=== PATIENT | male | born 1945 | race Caucasian/White ===

== ENCOUNTER → 2021-08-29 13:54 | Outpatient (BNVA) | payer MEDICARE, MEDICAID, SELFPAY | PROVIDERS: Visit Provider Internal Medicine | DX: J44.9 Chronic obstructive pulmonary disease, unspecified (principal); Z87.891 Personal history of nicotine dependence | CPT/HCPCS: 99202 ==

== ENCOUNTER 2021-09-23 13:25 | Outpatient (REF) | payer MEDICARE, MEDICAID, SELFPAY ==
--- NOTE | ~2021-09-23 | CT_ITS ---
EXAMINATION: CT CHEST SCREENING CLINICAL INFORMATION: Personal history of nicotine dependence. COMPARISON: None. TECHNIQUE: Multidetector volumetric CT imaging of the chest is performed without contrast using low dose technique. Additional 2D coronal and sagittal reformatted images and axial 3D maximum intensity projection (MIP) images are generated on the CT workstation. This CT examination was performed using dose optimization techniques as appropriate, variously including the following: *Automated exposure control *Adjustment of mA and/or kV according to patient size (this includes techniques or standardized protocols for targeted exams where dose is matched to indication/reason for exam; i.e. extremities or head) *Use of iterative reconstruction technique DLP: 63 mGy-cm FINDINGS: LUNGS: There are diffuse emphysematous changes of both lungs with small micronodules measuring 1 mm in both upper lobes, best visualized in the right upper lobe, axial image 176/6. There are additional small nodules in the left upper lobe better seen on the 8 mm thick axial images. There is subpleural reticular stranding seen in both lower lobes posterior basal segment, lingula and right middle lobe. There are small pulmonary cysts in both lower lobes. MEDIASTINUM: The thyroid lobes are symmetrical and normal. The central trachea and the bronchi are widely patent. The heart size and the great vessels are normal caliber. There are small shotty lymph nodes in the pretracheal space. There are coronary artery calcifications present. There is no pericardial effusion. A small to moderate-sized hiatal hernia is present. PLEURA: There is no pleural effusion. No pleural mass or thickening. AXILLA: No lymphadenopathy. UPPER ABDOMEN: Visualized liver, spleen, pancreas and adrenal glands are unremarkable. OSSEOUS STRUCTURES: No lytic or sclerotic process seen. CT/CT lung screening IMPRESSION: Emphysema with small micronodules measuring 1 mm in the upper lobes. There is fine reticular interstitial thickening in the right middle lobe, lingula and subpleural base both lower lobes with small cysts. Findings are suggestive for chronic lung changes. Small to moderate-sized hiatal hernia. ASSESSMENT: Lung-RADS category 2 Benign. RECOMMENDATION: Low-dose annual CT chest.
== END 2021-09-23 13:26 | disposition home or self-care (01) ==
LOC: HO.CT 13:25
PROVIDERS: Visit Provider Physician Assistant Medical
DX: Z12.2 Encounter for screening for malignant neoplasm of respiratory organs (principal); Z87.891 Personal history of nicotine dependence
CPT/HCPCS: 71271; G0296

== ENCOUNTER 2021-09-26 08:55 | Outpatient (REF) | payer MEDICARE, MEDICAID, SELFPAY ==
--- NOTE | 2021-09-26 16:28 | PFT_ITS ---
FLOWS: FEV1 82% of predicted at 2.42 L. FVC 96% of predicted at 3.92 L. FEV1 to FVC ratio of 0.62. Positive bronchodilator response. LUNG VOLUMES: Total lung capacity 104% of predicted at 7.17 L. Residual volume 152% of predicted at 3.80 L. Slow vital capacity 77% predicted at 3.37 L. Expiratory reserve volume 49% of predicted at 0.58 L. Diffusion capacity is moderately decreased. IMPRESSION: Mild to moderate obstructive ventilatory defect with positive bronchodilator response. Increased residual volume suggests air trapping. Decreased expiratory reserve volume suggests extrathoracic restriction likely secondary to abdominal obesity. Decreased diffusion capacity suggests emphysema. Desmond Bunch MD AP/MODL / [id number]
== END 2021-09-26 08:56 | disposition home or self-care (01) ==
LOC: HO.RESP 08:55
PROVIDERS: Visit Provider Internal Medicine
DX: J44.9 Chronic obstructive pulmonary disease, unspecified (principal); J84.9 Interstitial pulmonary disease, unspecified; Z87.891 Personal history of nicotine dependence
CPT/HCPCS: 94060; 94727; 94729; 99212

== ENCOUNTER → 2021-11-29 09:16 | Outpatient (BNVA) | payer MEDICARE, MEDICAID, SELFPAY | PROVIDERS: PCP Pediatrics; Visit Provider Internal Medicine | DX: J44.9 Chronic obstructive pulmonary disease, unspecified (principal); J84.9 Interstitial pulmonary disease, unspecified; Z87.891 Personal history of nicotine dependence | CPT/HCPCS: 99212 ==

== ENCOUNTER → 2022-06-01 09:29 | Outpatient (BNVA) | payer MEDICARE, MEDICAID, SELFPAY | PROVIDERS: PCP Pediatrics; Visit Provider Internal Medicine | DX: J44.9 Chronic obstructive pulmonary disease, unspecified (principal); J84.9 Interstitial pulmonary disease, unspecified; Z87.891 Personal history of nicotine dependence | CPT/HCPCS: 99212 ==

== ENCOUNTER 2022-09-15 08:35 | Outpatient (REF) | payer MEDICARE, MEDICAID, SELFPAY ==
[2022-09-15 10:37] LABS: MANUAL DIFF FLAG NO
[2022-09-15 10:40] LABS: Appearance Urine Clear; Color Urine Yellow; Glucose Urine UA Negative (Negative); Leukocyte Esterase Urine Negative (Negative); Nitrite Urine Negative (Negative); UMIC TRIGGER UA YES; Urine Blood Moderate (2+) (Negative); Urine Ketones Negative (Negative); Urine Protein Negative (Neg-Trace)
[2022-09-15 10:43] LABS: Basophils Absolute Auto 0.1 X10*3/uL (0.0-0.2); Basophils Percent Auto 0.7 % (0-2); Eosinophils Absolute Auto 0.2 X10*3/uL (0.0-0.4); Eosinophils Percent Auto 2.3 % (0-4); Hemoglobin 15.5 g/dl (14.0-18.0); Imm Gran Abs Auto 0.02 X10*3/uL (0.00-0.03); Imm Gran Pct Auto 0.3 % (0.0-0.4); Lymphocytes Absolute Auto 2.1 X10*3/uL (1.2-4.9); Lymphocytes Percent Auto 30.7 % (20-40); Mean Corpuscular Hemoglobin 31.4 pg (27.0-33.0); Mean Corpuscular Volume 95.1 fL (80.0-98.0); Mean Platelet Volume 10.3 fL (9.4-12.4); Monocytes Absolute Auto 0.5 X10*3/uL (0.1-1.2); Monocytes Percent Auto 6.9 % (2-11); Neutrophils Absolute Auto 4.1 x10*3/uL (2.0-8.3); Neutrophils Percent Auto 59.1 % (45-73); Platelet Count 283 X10*3/uL (160-400); Red Blood Count 4.94 X10*6/uL (4.60-5.80)
[2022-09-15 10:55] LABS: Alanine Aminotransferase 15 U/L (0-40); Alkaline Phosphatase 96 U/L (39-117); Anion Gap 18 (12-20); Aspartate Amino Transferase 18 U/L (5-37); Bilirubin Total 0.5 mg/dL (0.0-1.0); Blood Urea Nitrogen 22 mg/dL (9-16); Calcium 9.5 mg/dL (8.4-10.2); Carbon Dioxide 26 mmol/L (22-29); Chloride 102 mmol/L (96-108); Cholesterol 159 mg/dL; Estimated Glomerular Filt Rate 58; Glucose Fasting 142 mg/dL (60-99); HDL Cholesterol 44 mg/dL; LDL Cholesterol Calculated 93 mg/dl; Potassium 4.6 mmol/L (3.3-5.1); Sodium 141 mmol/L (135-145); Triglycerides 112 mg/dL
[2022-09-15 10:59] LABS: Bacteria Urine None Seen (None Seen); Hyaline Casts Urine 0-2 /LPF (0-2); Squamous Epithelial Cell Urine 0-2 /HPF (0-2); WBC Urine 0-5 /HPF (0-5)
[2022-09-15 11:17] LABS: Prostate Specific Antigen Scr 0.69 ng/mL (<0.05-4.0)
== END 2022-09-15 08:36 | disposition home or self-care (01) ==
LOC: HO.10HDL 08:35
PROVIDERS: Visit Provider Internal Medicine
DX: I25.10 Atherosclerotic heart disease of native coronary artery without angina pectoris (principal); E78.00 Pure hypercholesterolemia, unspecified; N40.0 Benign prostatic hyperplasia without lower urinary tract symptoms; Z12.5 Encounter for screening for malignant neoplasm of prostate
CPT/HCPCS: 36415; 80053; 80061; 81001; 84153; 85025

== ENCOUNTER → 2022-09-26 11:03 | Outpatient (BNVA) | payer MEDICARE, MEDICAID, SELFPAY | PROVIDERS: PCP Internal Medicine; Visit Provider Orthopaedic Surgery | DX: M72.0 Palmar fascial fibromatosis [Dupuytren] (principal) | CPT/HCPCS: 99202 ==

== ENCOUNTER 2022-11-27 09:27 | Outpatient (REF) | payer MEDICARE, MEDICAID, SELFPAY ==
[2022-11-27 10:49] LABS: Estimated Average Glucose 131 mg/dL; Hemoglobin A1c % 6.2 %
[2022-11-27 10:51] LABS: Anion Gap 14 (12-20); Blood Urea Nitrogen 22 mg/dL (9-16); Calcium 9.1 mg/dL (8.4-10.2); Carbon Dioxide 27 mmol/L (22-29); Chloride 103 mmol/L (96-108); Estimated Glomerular Filt Rate 59; Glucose Random 127 mg/dL (60-115); Potassium 4.7 mmol/L (3.3-5.1); Sodium 139 mmol/L (135-145)
== END 2022-11-27 09:28 | disposition home or self-care (01) ==
LOC: HO.10HDL 09:27
PROVIDERS: Visit Provider Internal Medicine
DX: R73.9 Hyperglycemia, unspecified (principal); N18.9 Chronic kidney disease, unspecified; J44.9 Chronic obstructive pulmonary disease, unspecified; J84.9 Interstitial pulmonary disease, unspecified; Z87.891 Personal history of nicotine dependence
CPT/HCPCS: 36415; 80048; 83036; 99212

== ENCOUNTER 2023-04-11 09:05 | Outpatient (REF) | payer MEDICARE, MEDICAID, SELFPAY ==
--- NOTE | ~2023-04-11 | XR_ITS ---
EXAMINATION: XR CERVICAL SPINE CLINICAL INFORMATION: Pain COMPARISON: None TECHNIQUE: 5 views of the cervical spine were obtained. FINDINGS: The cervical spine is visualized to the level of C7-T1 on the lateral view. 3 mm of anterolisthesis of C4 on C5. Vertebral body heights are maintained. Lateral masses of C1 are well aligned on C2. Visualized portion of the dens is intact. Moderate degenerative disc disease at C5-C6 and C6-C7, manifested by disc space height and multilevel facet arthropathy. Uncovertebral hypertrophy and facet arthropathy results in multilevel bilateral moderate to severe neural foraminal narrowing worst bilaterally at C3-C4 and C5-C6. No prevertebral soft tissue swelling. Calcifications in the soft tissues of the bilateral neck may reflect carotid calcifications. XR/XR cervical spine 4V IMPRESSION: 1. Moderate degenerative disc disease at C5-C6 and C6-C7, manifested by disc space height and multilevel facet arthropathy. 2. Uncovertebral hypertrophy and facet arthropathy results in multilevel moderate to severe neural foraminal narrowing worst bilaterally at C3-C4 and C5-C6. 3. 3 mm of anterolisthesis of C4 on C5. 4. Calcifications in the soft tissues of the bilateral neck may reflect carotid calcifications. This could be confirmed with a carotid ultrasound if warranted.
[2023-04-11 09:50] LABS: Estimated Average Glucose 123 mg/dL; Hemoglobin A1c % 5.9 %
[2023-04-11 10:28] LABS: Anion Gap 10 (12-20); Blood Urea Nitrogen 20 mg/dL (9-16); Calcium 9.1 mg/dL (8.4-10.2); Carbon Dioxide 26 mmol/L (22-29); Chloride 109 mmol/L (96-108); Estimated Glomerular Filt Rate > 60; Glucose Random 143 mg/dL (60-115); Potassium 4.9 mmol/L (3.3-5.1); Sodium 140 mmol/L (135-145)
== END 2023-04-11 09:06 | disposition home or self-care (01) ==
LOC: HO.XRAY 09:05
PROVIDERS: PCP Internal Medicine; Visit Provider Internal Medicine
DX: M54.2 Cervicalgia (principal); J44.9 Chronic obstructive pulmonary disease, unspecified; N18.9 Chronic kidney disease, unspecified; R73.03 Prediabetes
CPT/HCPCS: 36415; 72050; 80048; 83036

== ENCOUNTER 2023-06-04 10:05 | Outpatient (AMB) | payer MEDICARE, MEDICAID, SELFPAY ==
[2023-06-04 10:06] VITALS: BP 112/78; PULSE 67; O2SAT 93; BMI 26.6
--- NOTE | 2023-06-04 10:06 | A.OFFVIS_ITS ---
Intake Vital Signs 06/04/23 10:06 Height 5 ft 10 in Weight 185 lb 3.013 oz BMI 26.6 BP 112/78 Blood Pressure Location Lt brachial Position Sitting Pulse 67 Pulse Source Pulse Oximeter Pulse Oximetry (%) 93 Oxygen Delivery Method Room Air Intake Visit Reasons: COPD Intake Note: Pt presents today for a routine check up. He finds it harder to breathe when it is humid out and has a consistent cough with mucus. Allergies No Known Allergies Allergy (Verified 06/04/23 10:27) Medication List - Last Reconciled 06/04/23 by Leti Casas MD Advair Diskus 250-50 mcg/dose (fluticasone propion-salmeterol) 1 ea inhalation BID NS albuterol sulfate 90 mcg/actuation 0 mcg inhalation omega-3 fatty acids 0 mg PO BEDTIME Do you need a note to return to daycare/school/sports/work: No HPI COPD HPI Details THIS 77 YEARS OLD VERY [employer] GENTLEMAN IS HERE FOR HIS 6 MONTHS FOLLOW-UP. He has usual mild intermittent cough, and dyspnea on walking up stairs or climbing hills. Continues to use Advair 250-50 1 inhalation b.i.d., and uses ProAir once or twice a day especially in the evenings. Luckily he has had no respiratory infection or acute exacerbation in the last 6 months. Overall his respiratory status has remained very stable. HE QUIT SMOKING IN 2006. [facility] Medical History CAD (coronary artery disease) COPD (chronic obstructive pulmonary disease) History of retinal hemorrhage History of smoking at least 1 pack per day for at least 30 years Hyperlipidemia Hypertension, essential Interstitial lung disease Mild aortic stenosis Personal history of nicotine dependence Prediabetes Surgical History History of heart artery stent (~2010) Social History Alcohol intake: current Alcohol intake frequency: does not drink Patient Tobacco Use Status: Former Tobacco user Quit Date: 2006 Tobacco use type: Cigarette Years Smoked: 45 (onset 17, 1.5ppd x 44yrs, 65pyh - quit 2006) 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 Review of Systems Const All systems reviewed & are unremarkable except as noted in HPI and below Eyes Reports no additional complaints ENT Reports no additional complaints Card Denies chest pain, Denies irregular heart rhythm and Denies leg edema Resp Reports as per HPI GI Reports no additional complaints Reports no additional complaints Musc Reports no additional complaints Skin/Breast Reports system reviewed and no additional complaints, except as documented Neuro Reports no additional complaints Psych Reports no additional complaints Physical Exam Vital Signs: Last Vital Signs Pulse 67 06/04/23 10:06 BP 112/78 06/04/23 10:06 Pulse Ox 93 06/04/23 10:06 Oxygen Delivery Method Room Air 06/04/23 10:06 BMI result Body Mass Index 26.6 Const General: healthy appearing, comfortable, no acute distress, alert and awake Orientation/consciousness: patient oriented x3 HEENT Head: Yes normal to inspection General nose exam: No nasal polyps present and No nasal discharge present Face and sinus: Yes sinuses nontender Mouth: oropharynx normal Throat: Yes posterior oropharynx normal Eyes General: appearance normal, both eyes and all related structures Neck Neck: Yes normal visual inspection, Yes no lymphadenopathy, Yes trachea midline and Yes no JVD Thyroid: Thyroid normal Chest Chest palpation & inspection: normal inspection of the chest, normal palpation of entire chest wall and no tenderness Resp Other: Percussion note is resonant on both sides. Breath sounds are distant, equal with prolonged expiratory phase. No wheezes rhonchi or crepitations are heard. Cardio Palpation: normal PMI Rate: regular rate Rhythm: regular rhythm Heart sounds: no gallops and no murmurs Peripheral pulses: Peripheral pulses 2+ throughout GI Palpation (GI): Soft to palpation, nontender, No hepatosplenomegaly present and no masses Auscultation: normal bowel sounds Back/Spine/Pelvis Thoracic/Lumbar Spine: thoracic and lumbar spine normal to inspection Skin General skin exam: no rashes or lesions noted Neuro General: patient oriented x3 and no focal motor deficits Cranial nerves: Yes CN's II-XII intact bilaterally Extrem General: Yes normal to inspection, Yes no clubbing, cyanosis or edema and Yes no calf tenderness Psych Appearance: grossly normal and well kempt Speech and movement: Normal speech and movement present Office Procedures Spirometry Testing Spirometry Comments: Spirometry completed in office. Results to Dr Casas. [id number]- Spirometry Results Reviewed Results Reviewed: SPIROMETRY FVC=65 % slightly decreased from before. His effort was not great. FEV1=74 % FEF 25-75 = 100 % ( OBSTRUCTIVE COMPONENT IS WELL TREATED ) Assessment & Plan Assessment & Plan (1) COPD (chronic obstructive pulmonary disease): Comment: (COPD in long-time smoker ) PULM . FUNCTION TEST IN 2020 C/W mild to moderate obstructive disorder , with good response to bronchodilator therapy. ( ACOS ) SPIROMETRY TODAY SHOWS THAT HE MAY HAVE MILD RESTRICTIVE DISORDER, BUT OBSTRUCTIVE DISORDER IS WELL TREATED. TX : Continue using Advair 250-50 one inh twice a day Also use albuterol HFA (proair ) 2 puffs Q 4-6 hours p.r.n. Code(s): J44.9 - Chronic obstructive pulmonary disease, unspecified (2) History of smoking at least 1 pack per day for at least 30 years: Comment: . HISTORY OF SMOKING IN THE PAST QUIT in 2006 . Code(s): Z87.891 - Personal history of nicotine dependence Orders: Orders AMB Spirometry Testing Today J44.9 - Chronic obstructive pulmonary disease, unspecified Coding Level of Care Code Est Pt Level 3 (17650) Diagnoses COPD (chronic obstructive pulmonary disease) J44.9 History of smoking at least 1 pack per day for at least 30 years Z87.891 CPT Codes Spirometry - CPT: 23465- Spirometry ([id number])
== END 2023-06-04 10:43 | disposition home or self-care (01) ==
PROVIDERS: PCP Internal Medicine; Visit Provider Internal Medicine
DX: J44.9 Chronic obstructive pulmonary disease, unspecified (principal); Z87.891 Personal history of nicotine dependence
CPT/HCPCS: 94010; 99213

== ENCOUNTER → 2023-06-04 10:05 | Outpatient (BNVA) | payer MEDICARE, MEDICAID, SELFPAY | PROVIDERS: PCP Internal Medicine; Visit Provider Internal Medicine | DX: J44.9 Chronic obstructive pulmonary disease, unspecified (principal); Z87.891 Personal history of nicotine dependence | CPT/HCPCS: 94010; 99212 ==

== ENCOUNTER 2023-06-15 09:12 | Outpatient (REF) | payer MEDICARE, MEDICAID, SELFPAY ==
--- NOTE | ~2023-06-15 | XR_ITS ---
EXAMINATION: Pre-MRI orbits. CLINICAL INDICATIONS: Rule out foreign body in orbits. COMPARISON: None. TECHNIQUE: 3 views. FINDINGS: There is no radiopaque foreign body seen in the orbits. Visualized bony orbits and the maxillofacial bones are normal. The paranasal sinuses are clear. XR/XR pre mri screening IMPRESSION: No radiopaque foreign body seen in the orbits.
--- NOTE | ~2023-06-15 | MR_ITS ---
EXAMINATION: MR CERVICAL SPINE WITHOUT CONTRAST CLINICAL INFORMATION: Foraminal stenosis with pain radiating into both shoulders. COMPARISON: Cervical spine radiographs 04/11/2023. TECHNIQUE: MRI of the cervical spine was obtained using routine sequences without contrast. FINDINGS: There is a slight anterolisthesis of C4 on C5 related to advanced facet degenerative changes at this level. Alignment is otherwise normal. Vertebral body heights are preserved. There is loss of intervertebral disc height and T2 signal intensity at C5-C6 and C6-C7 related to disc degeneration. Disc desiccation visualized at multiple additional levels. The cervicomedullary junction is normal. Limited visualization of the posterior fossa reveals no abnormal finding. Occipital condyles and lateral C1 masses are intact. The atlantodental joint is normal. C1-C2 articular facets are unremarkable. At C2-C3 there is a bulging disc and buckling of the ligamenta flava. Mild canal stenosis. Uncovertebral joint spurring in conjunction with facet degenerative change causes mild bilateral neuroforaminal encroachment. At C3-C4 there is a diffusely bulging disc and buckling of the ligamenta flava causing moderate to severe canal stenosis with AP flattening of the cord contour. Questionable intramedullary signal changes at this level. Uncovertebral joint spurring and facet degenerative change causes moderate bilateral neuroforaminal catheter. At C4-C5 there is a slightly bulging disc. Bilateral facet degenerative change. No canal stenosis. Mild right neuroforaminal encroachment. At C5-C6 there is a bulging disc and buckling of the ligamenta flava. Moderate to severe canal stenosis with subtle flattening of the ventral cord contour. Questionable intramedullary signal changes. Uncovertebral joint spurring and conjunction with facet degenerative change causes moderate bilateral neuroforaminal encroachment. At C6-C7 there is a bulging disc and buckling of the ligamenta flava. Moderate canal stenosis. Uncovertebral joint spurring and facet degenerative change causes moderate bilateral neuroforaminal encroachment. At C7-T1 the annular contour is normal. Bilateral facet degenerative change. No canal stenosis. No neuroforaminal encroachment. Visualized soft tissues of the neck are normal. Vascular flow voids are maintained. MR/MR cervical spine wo con IMPRESSION: There is multilevel degenerative spondylosis of the cervical spine with slight anterolisthesis of C4 on C5 related to advanced facet degenerative changes at this level. There is moderate to severe canal stenosis at C3-C4 and C5-C6. Moderate canal stenosis at C6-C7. There are questionable intramedullary signal changes at the level of C3-C4 and C5-C6 that may represent a manifestation of edema or myelomalacia. There are varying degrees of neuroforaminal encroachment related to uncovertebral joint spurring and facet degenerative change as described above.
== END 2023-06-15 09:13 | disposition home or self-care (01) ==
LOC: HO.MRI 09:12
PROVIDERS: PCP Internal Medicine; Visit Provider Internal Medicine
DX: M99.71 Connective tissue and disc stenosis of intervertebral foramina of cervical region (principal)
CPT/HCPCS: 72141

== ENCOUNTER 2023-08-24 08:46 | Emergency (ER) | payer MEDICARE, MEDICAID, SELFPAY ==
[2023-08-24 09:20] VITALS: BP 152/46; PULSE 65; RESP 16; TEMP 35.8; O2SAT 97; BMI 26.3
--- NOTE | 2023-08-24 09:22 | ED_ITS ---
HPI - General Adult General Chief complaint: Back Pain/Injury Stated complaint: herniated disc? Time Seen by Provider: 08/24/23 09:22 Source: patient Mode of arrival: ambulatory Limitations: no limitations History of Present Illness HPI narrative: Patient is a 77 year old assigned male at with a history of CAD, herniated discs, and HTN presenting to the emergency department today with right sided low back pain that radiates down his right leg. Patient states that many years ago he was diagnosed with multiple herniated discs, got a steroid shot in his back, and the pain went away. Patient states that over the last few days the pain has returned and began to worsen. Patient states that the pain is in his right low back and radiates down his right leg. Patient states that he has an appointment with a regional telecommunications specialist a month and a half away. Patient denies any dizziness, lightheadedness, abdominal pain, nausea, vomiting, fever, chills, blurry vision, double vision, loss of vision, chest pain, difficulty breathing, shortness of breath, night sweats, pain with urination, increased urinary frequency, increased urinary urgency, blood in his urine or stool, syncope or a near syncopal episode, recent trauma or falls, bowel incontinence, bladder incontinence, bowel retention, bladder retention, or any other complaints at this time. Onset (ago): day(s) Location: back Radiation: extremity Severity: mild Severity scale (1-10): 4 Quality: stabbing Pain Consistency: constant Relieving factors: immobilization Exacerbating factors: movement Associated symptoms: denies other symptoms Treatments prior to arrival: NSAID Related Data Home Medications Medication Instructions Recorded Confirmed albuterol sulfate 90 mcg/actuation 0 mcg inhalation 08/29/21 06/01/22 aerosol inhaler omega-3 fatty acids 1,000 mg 0 mg PO BEDTIME 08/29/21 06/01/22 capsule Previous Rx's Medication Instructions Recorded Advair Diskus 250 mcg-50 mcg/dose 1 ea inhalation BID #60 ea 04/10/23 powder for inhalation (fluticasone propion-salmeterol) cyclobenzaprine 5 mg tablet 5 mg PO TID PRN muscle spasm 7 08/24/23 days #21 tabs naproxen 500 mg tablet 500 mg PO BID 7 days #14 tabs 08/24/23 prednisone 20 mg tablet 20 mg PO DAILY 7 days #7 tabs 08/24/23 Allergies Allergy/AdvReac Type Severity Reaction Status Date / Time No Known Allergies Allergy Verified 06/04/23 10:27 Review of Systems Constitutional: Constitutional: Reports no additional constitutional complaints, Denies chills, Denies fever(s) and Denies night sweats Eyes: Eyes: Reports no additional eye complaints, Denies blurry vision, Denies change in vision, Denies diplopia, Denies eye discharge, Denies loss of vision and Denies eye pain ENT: Denies dizziness Cardiovascular: Cardiovascular: Reports no additional cardiovascular complaints, Denies chest pain, Denies lightheadedness, Denies Loss of Consciousness and Denies dyspnea Respiratory: Respiratory: Reports no additional respiratory complaints and Denies dyspnea Gastrointestinal: Gastrointestinal: Reports no additional gastrointestinal complaints, Denies abdominal pain, Denies melena, Denies hematochezia, Denies change in bowel habits and Denies change in stool character Genitourinary: Genitourinary: Reports no additional male genitourinary complaints, Denies hematuria, Denies oliguria, Denies difficulty urinating, Denies dysuria, Denies urinary frequency, Denies urinary hesitancy, Denies urinary incontinence and Denies urinary urgency Musculoskeletal: Musculoskeletal: Reports no additional musculoskeletal com plaints, Reports back pain, Denies numbness and Denies tingling Neurologic: Denies dizziness, Denies loss of vision, Denies numbness and Denies tingling Psychiatric: Psychiatric: Reports no additional psychiatric complaints Endocrine: Endocrine: Reports no additional endocrine complaints Hematologic/Lymphatic: Hematologic/Lymphatic: Reports no additional hematologic/lymphatic complaints Allergic/Immunologic: Allergic/Immunologic: Reports no additional allergic/immunologic complaints [facility] Past Medical History Attestation statement: The following information was validated with the patient. Source: old records reviewed and nursing notes reviewed Medical History Interstitial lung disease History of smoking at least 1 pack per day for at least 30 years Mild aortic stenosis History of retinal hemorrhage Personal history of nicotine dependence Prediabetes Hyperlipidemia Hypertension, essential CAD (coronary artery disease) COPD (chronic obstructive pulmonary disease) Surgical History History of heart artery stent (~2010) Social History Social History Alcohol intake: current Alcohol intake frequency: does not drink Patient Tobacco Use Status: Former Tobacco user Quit Date: 2006 Tobacco use type: Cigarette Years Smoked: 45 (onset 17, 1.5ppd x 44yrs, 65pyh - quit 2006) 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 Physical Exam ED Vital Signs: Vital Signs - 24 hr 08/24/23 09:20 Temperature 96.5 F L Pulse Rate 65 Respiratory Rate 16 Blood Pressure 152/46 H Pulse Oximetry 97 Oxygen Delivery Method Room Air BMI result Body Mass Index 26.3 Const General: cooperative, no acute distress, alert and awake Nutritional Appearance: well nourished Orientation/consciousness: patient oriented x3 Limitations: no limitations HENMT Head: Yes normal to inspection and Yes atraumatic Ears: hearing grossly normal bilaterally and external ears normal General nose exam: Normal external nose present, no nasal discharge noted and no epistaxis Face and sinus: Yes normal facial exam, No abrasion and No laceration Mouth: Normal oral and palatal mucosa present, no drooling and no muffled voice Eyes General: appearance normal, both eyes and all related structures Periorbital: periorbital findings normal Eyelids: Yes eyelids normal Conjunctivae: conjunctivae normal Pupils: Equal, round and reactive pupils present EOM: EOMs intact bilaterally Neck Neck: Yes normal visual inspection, Yes full ROM and Yes no lymphadenopathy Chest Chest palpation & inspection: normal inspection of the chest Resp Effort & Inspection: normal respiratory effort and able to speak in complete sentences GI Inspection: Yes normal to inspection General: Yes no CVA tenderness Back/Spine/Pelvis Back: no CVA tenderness Cervical Spine: normal cervical lordosis and cervical ROM normal Thoracic/Lumbar Spine: thoracic and lumbar spine normal to inspection and thoraco-lumbar ROM normal Neuro General: patient oriented x3 and moves all extremities Cranial nerves: Yes Equal, round and reactive pupils present Cognition (Neuro): normal cognition Motor exam (neuro): 5/5 motor strength present throughout Sensory Exam: Normal double simultaneous stimulation for sensation Coordination: [id number] test normal Extrem General: Yes normal to inspection, Yes full ROM and Yes capillary refill normal Psych Appearance: grossly normal Mental Status: mental status grossly normal Affect: normal affect Attitude: cooperative Thought process: Normal thought process present Thought content: Normal thought content present Insight: Good insight present (Psych) Medications Administered Discontinued Medications Generic Name Dose Route Start Last Admin Trade Name Kermit PRN Reason Stop Dose Admin Cyclobenzaprine HCl 5 mg 08/24/23 09:58 08/24/23 10:10 Cyclobenzaprine Hcl 5 Mg Tablet PO 08/24/23 09:59 5 mg ONCE ONE Administration Ketorolac Tromethamine 15 mg 08/24/23 09:58 08/24/23 10:10 Ketorolac Tromethamine 15 Mg/Ml Vial IM 08/24/23 09:59 15 mg ONCE ONE Administration Prednisone 20 mg 08/24/23 09:58 08/24/23 10:10 Prednisone 20 Mg Tablet PO 08/24/23 09:59 20 mg ONCE ONE Administration Medical Decision Making Medical Decision Making MDM Narrative: Patient is a 77 year old assigned male at with a history of CAD, HTN, and multiple herniated discs presenting to the emergency department today with right sided low back pain. Patient's physical exam was unremarkable. I explained my physical exam findings to the patient. I answered all questions asked by the patient. The patient and I discussed need or lack there of for imaging. At this time, the patient declined any imaging. Patient received PO Flexeril, PO Prednisone, and IM Toradol which he stated helped his pain significantly. I stressed the importance of the patient taking his medication as prescribed. I stressed the importance of the patient following up with his primary care provider and a regional telecommunications specialist. I stressed the importance of the patient returning to the emergency department immediately if his symptoms were to worsen or if he were to develop any dizziness, shortness of breath, difficulty juan thing, chest pain, blurry vision, loss of vision, nausea, vomiting, abdominal pain, fever, chills, back pain, or any other complaints. Patient verbalized agreement and understanding with this treatment plan and discharge. Differential Diagnosis Differential Diagnoses: The differential diagnosis associated with the presentation includes Herniated discs Low back pain Chronic low back pain Sciatic pain Tests considered The following testing was considered but not selected: Imaging was considered but patient declined as noted in the MDM rationale portion of this note. Prescription Management I considered prescription management with: Pain Medication (patient prescribed pain medication.) Chronic Conditions Patient?s care impacted by: Hypertension Discharge Plan Discharge Clinical Impression: Back pain Patient Disposition: Home, Self-Care Instructions: Back Pain (ED) Additional Instructions: Follow up with your primary care provider and a regional telecommunications specialist. Return to the emergency department immediately if your symptoms worsen or if you develop any dizziness, shortness of breath, difficulty breathing, chest pain, blurry vision, loss of vision, nausea, vomiting, abdominal pain, fever, chills, back pain, or any other complaints. Prescriptions: New cyclobenzaprine 5 mg tablet 5 mg PO TID PRN (Reason: muscle spasm) 7 Days Qty: 21 0RF prednisone 20 mg tablet 20 mg PO DAILY 7 Days Qty: 7 0RF naproxen 500 mg tablet 500 mg PO BID 7 Days Qty: 14 0RF No Action fluticasone propion-salmeterol [Advair Diskus] 250-50 mcg/dose blister with device 1 ea inhalation BID Qty: 60 4RF omega-3 fatty acids 1,000 mg capsule 0 mg PO BEDTIME albuterol sulfate 90 mcg/actuation HFA aerosol inhaler 0 mcg inhalation Referrals: [facility] [Provider Group] (Call to establish and follow up with a regional telecommunications specialist.) Benny Michelle MD [Primary Care Provider] - Interventions: ED Discharge Assessment Last Done: 08/24/23 10:20 Discharge Date/Time: 08/24/23 10:21 Print Language: [place]
[2023-08-24] MEDS: Cyclobenzaprine HCl 5 MG TABLET PO (10:10)
[2023-08-24] MEDS: Ketorolac Tromethamine 15 MG/ML VIAL IM (10:10)
[2023-08-24] MEDS: predniSONE 20 MG TABLET PO (10:10)
== END 2023-08-24 10:21 | disposition home or self-care (01) ==
PROVIDERS: Emergency Provider Student in an Organized Health Care Education/Training Program; PCP Internal Medicine
DX: M54.50 Low back pain, unspecified (principal); E11.9 Type 2 diabetes mellitus without complications; I10 Essential (primary) hypertension; E78.5 Hyperlipidemia, unspecified; Z87.891 Personal history of nicotine dependence; Z79.899 Other long term (current) drug therapy
CPT/HCPCS: 96372; 99283; 99284; J1885

== ENCOUNTER 2023-09-13 10:30 | Outpatient (REF) | payer MEDICARE, MEDICAID, SELFPAY ==
[2023-09-13 13:43] LABS: Anion Gap 10 (12-20); Blood Urea Nitrogen 19 mg/dL (9-16); Calcium 8.9 mg/dL (8.4-10.2); Carbon Dioxide 28 mmol/L (22-29); Chloride 106 mmol/L (96-108); Estimated Glomerular Filt Rate > 60; Glucose Random 142 mg/dL (60-115); Potassium 4.6 mmol/L (3.3-5.1); Sodium 139 mmol/L (135-145)
== END 2023-09-13 10:31 | disposition home or self-care (01) ==
LOC: HO.10HDL 10:30
PROVIDERS: Visit Provider Internal Medicine
DX: N17.9 Acute kidney failure, unspecified (principal)
CPT/HCPCS: 36415; 80048

== ENCOUNTER 2023-12-03 09:29 | Outpatient (AMB) | payer MEDICARE, MEDICAID, SELFPAY ==
--- NOTE | 2023-12-03 09:33 | A.OFFVIS_ITS ---
Intake Vital Signs 12/03/23 09:34 Height 5 ft 10 in Weight 187 lb BMI 26.8 BP 130/70 Blood Pressure Location Lt brachial Position Sitting Pulse 60 Pulse Source Pulse Oximeter Pulse Oximetry (%) 96 Oxygen Delivery Method Room Air Intake Visit Reasons: copd Intake Note: pt is here for follow up and states he is feeling, had hospital stay about month ago in [facility] for back surgery. 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 HIS THE PULMONARY DISEASE IS MAINLY, RESTRICTIVE PULMONARY DISORDER WITH, MILD TO MODERATE OBSTRUCTIVE DISORDER. HE HAS PAST HISTORY OF SMOKING FOR AT LEAST 30 YEARS, HE HAS BEEN IN ANNUAL LUNG SCREENING PROGRAM, AND HIS CT SCAN HAS BEEN BENIGN CATEGORY 2. DURING THE PAST FEW MONTHS HE HAS BEEN HOSPITALIZED AT [facility] FOR ACUTE LUMBAR RADICULOPATHY, HE HAD MICRODISKECTOMY, WITH RELIEF OF ACUTE BACK PAIN BUT CONTINUES TO HAVE MIL D RADICULAR SYMPTOMS IN THE RIGHT LOWER EXTREMITY. HE ALSO HAS ASSOCIATED CONGESTIVE HEART FAILURE WHICH IS UNDER CONTROL. HE WALKS SLOWLY, USES A CANE, DENIES ANY SIGNIFICANT SHORTNESS OF BREATH, HE DOES HAVE MILD INTERMITTENT COUGH, NO WHEEZING. [facility] Medical History Interstitial lung disease History of smoking at least 1 pack per day for at least 30 years Mild aortic stenosis History of retinal hemorrhage Personal history of nicotine dependence Prediabetes Hyperlipidemia Hypertension, essential CAD (coronary artery disease) COPD (chronic obstructive pulmonary disease) Surgical History History of heart artery stent (~2010) Social History Alcohol intake: current Alcohol intake frequency: does not drink Patient Tobacco Use Status: Former Tobacco user Quit Date: 2006 Tobacco use type: Cigarette Years Smoked: 45 (onset 17, 1.5ppd x 44yrs, 65pyh - quit 2006) 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 Review of Systems Const All systems reviewed & are unremarkable except as noted in HPI and below Eyes Reports no additional complaints ENT Reports no additional complaints Card Denies chest pain, Denies irregular heart rhythm and Denies leg edema Resp Reports as per HPI GI Reports no additional complaints Reports no additional complaints Musc Reports no additional complaints Skin/Breast Reports system reviewed and no additional complaints, except as documented Neuro Reports no additional complaints Psych Reports no additional complaints Physical Exam Vital Signs: Last Vital Signs Pulse 60 12/03/23 09:34 BP 130/70 12/03/23 09:34 Pulse Ox 96 12/03/23 09:34 Oxygen Delivery Method Room Air 12/03/23 09:34 BMI result Body Mass Index 26.8 Const General: healthy appearing, comfortable, no acute distress, alert and awake Orientation/consciousness: patient oriented x3 HEENT Head: Yes normal to inspection General nose exam: No nasal polyps present and No nasal discharge present Face and sinus: Yes sinuses nontender Mouth: oropharynx normal Throat: Yes posterior oropharynx normal Eyes General: appearance normal, both eyes and all related structures Neck Neck: Yes normal visual inspection, Yes no lymphadenopathy, Yes trachea midline and Yes no JVD Thyroid: Thyroid normal Chest Chest palpation & inspection: normal inspection of the chest, normal palpation of entire chest wall and no tenderness Resp Other: Percussion note is resonant on both sides. Breath sounds are distant, equal with prolonged expiratory phase. No wheezes rhonchi or crepitations are heard. Cardio Palpation: normal PMI Rate: regular rate Rhythm: regular rhythm Heart sounds: no gallops and no murmurs Peripheral pulses: Peripheral pulses 2+ throughout GI Palpation (GI): Soft to palpation, nontender, No hepatosplenomegaly present and no masses Auscultation: normal bowel sounds Back/Spine/Pelvis Thoracic/Lumbar Spine: thoracic and lumbar spine normal to inspection Skin General skin exam: no rashes or lesions noted Neuro General: patient oriented x3 and no focal motor deficits Cranial nerves: Yes CN's II-XII intact bilaterally Extrem General: Yes normal to inspection, Yes no clubbing, cyanosis or edema and Yes no calf tenderness Psych Appearance: grossly normal and well kempt Speech and movement: Normal speech and movement present Assessment & Plan Assessment & Plan (1) History of smoking at least 1 pack per day for at least 30 years: Comment: . HISTORY OF SMOKING IN THE PAST QUIT in 2006 . Code(s): Z87.891 - Personal history of nicotine dependence Plan: HAS BEEN PARTICIPATING IN ANNUAL LUNG SCREENING PROGRAM. FINDINGS HAVE BEEN BENIGN . (2) COPD (chronic obstructive pulmonary disease): Comment: (COPD in long-time smoker ) PULM . FUNCTION TEST IN 2020 C/W mild to moderate obstructive disorder , with good response to bronchodilator therapy. ( ACOS ) HE IS DOING VERY WELL WITH THE CURRENT MEDICAL REGIMEN, ADVAIR WAS CHANGED TO SYMBICORT. Code(s): J44.9 - Chronic obstructive pulmonary disease, unspecified Plan: [place] : CONTINUE SYMBICORT 160-4.52 PUFFS B.I.D.. AND PROAIR 2 PUFFS Q 4-6 HOURS ONLY P.R.N.. (3) Interstitial lung disease: Comment: As per CT scan he does have evidence of fibrotic changes with peripheral reticulation in the lower lobes, c/w pulmonary fibrosis, mild . This is secondary to previous smoking and exposure to paint and sprays etc also. This is the cause of decreased DLCO. Will continue to watch for any progression. Code(s): J84.9 - Interstitial pulmonary disease, unspecified Plan: No specific treatment needed at this time Medications: Refilled budesonide-formoterol 160-4.5 mcg/actuation (Symbicort) 2 puffs inhalation BID 10.2 grams 5RF ASTHMA/COPD 30 days Coding Level of Care Code Est Pt Level 3 (54307) Diagnoses History of smoking at least 1 pack per day for at least 30 years Z87.891 COPD (chronic obstructive pulmonary disease) J44.9 Interstitial lung disease J84.9
[2023-12-03 09:34] VITALS: BP 130/70; PULSE 60; O2SAT 96; BMI 26.8
== END 2023-12-03 09:56 | disposition home or self-care (01) ==
PROVIDERS: PCP Internal Medicine; Visit Provider Internal Medicine
DX: Z87.891 Personal history of nicotine dependence (principal); J44.9 Chronic obstructive pulmonary disease, unspecified; J84.9 Interstitial pulmonary disease, unspecified
CPT/HCPCS: 99213

== ENCOUNTER → 2023-12-03 09:29 | Outpatient (BNVA) | payer MEDICARE, MEDICAID, SELFPAY | PROVIDERS: PCP Internal Medicine; Visit Provider Internal Medicine | DX: J44.9 Chronic obstructive pulmonary disease, unspecified (principal); J84.9 Interstitial pulmonary disease, unspecified; Z87.891 Personal history of nicotine dependence | CPT/HCPCS: 99212 ==

== ENCOUNTER → 2023-12-06 09:45 | Outpatient (REF) | payer MEDICARE, MEDICAID, SELFPAY ==
--- NOTE | ~2023-12-06 | US_ITS ---
EXAMINATION: US EXTRACRANIAL CAROTID DUPLEX, BILATERAL CLINICAL INFORMATION: Carotid bruit. Former smoker. COMPARISON: None available. TECHNIQUE: Real-time ultrasound and Doppler techniques (integrating B-mode 2-D vascular images, Doppler spectral analysis and color-flow Doppler imaging) were utilized to interrogate the extracranial carotid arteries, the vertebral arteries and proximal subclavian arteries bilaterally. The degree of stenosis is determined by criteria similar to NASCET. FINDINGS: Right Side: 1. There is moderate atherosclerotic plaque seen in the bifurcation/proximal ICA region. 2. The common carotid artery PSV proximally is 141 cm/s and distally 94 cm/s. 3. The proximal internal carotid artery velocities are 68 cm/s systolic and 25 cm/s diastolic. 4. The proximal external carotid artery PSV is 171 cm/s. 5. The vertebral artery shows antegrade flow. 6. The subclavian artery waveforms are biphasic. Left Side: 1. There is mild atherosclerotic plaque seen in the bifurcation/proximal ICA region. 2. The common carotid artery PSV proximally is 100 cm/s and distally 84 cm/s. 3. The proximal internal carotid artery velocities are 79 cm/s systolic and 30 cm/s diastolic. 4. The proximal external carotid artery PSV is 99 cm/s. 5. The vertebral artery shows antegrade flow. 6. The subclavian artery waveforms are biphasic. US/US carotid duplex BI IMPRESSION: 1. RIGHT: Minimal, non-hemodynamically significant stenosis of the proximal right internal carotid artery corresponding to a 0-49% stenosis by velocity criteria. 2. LEFT: Minimal, non-hemodynamically significant stenosis of the proximal left internal carotid artery corresponding to a 0-49% stenosis by velocity criteria.
--- NOTE | 2023-12-06 09:51 | CA_ITS ---
Transthoracic Echocardiogram Patient (Last, First, Middle): August Rivera H Gender: Male Date of : 1945 Age: 77 Procedure Date: 12/06/2023 Procedure Type: Transthoracic Echocardiogram Location: OP Height: 175.26 cm Weight: 81.65 kg BSA: 1.98 m2 Heart Rate: 64 bpm BP: 165 / 80 mmHg In Store Representative: MICHAEL Referring MD: Benny Michelle MD Spring Assembler: Patrick Null MD Symptoms: R01.1 CARDIAC MURMUR Study Quality: Adequate ECG Rhythm: Sinus Conclusions: - 1. Normal LV ejection fraction of 55-60% with mild LVH with impaired relaxation filling pattern 2. Mildly dilated left atrium 3. Severe aortic stenosis despite mean gradient of 36 mmHg 4. Normal RV systolic pressure 5. No gross pericardial effusion Findings Left Ventricle Normal left ventricular size and systolic function. There is mildly increased left ventricular wall thickness. The visually estimated ejection fraction is between 55-60%. Spectral Doppler is indicative of an impaired relaxation filling pattern. E/E prime ratio is between 8 and 15 consistent with indeterminate filling pressures. Peak GLS is -13.9%, which is moderately reduced. Right Ventricle Normal right ventricular cavity size and systolic function. Atria The left atrium is mildly dilated. There is lipomatous hypertrophy of the interatrial septum. There is no evidence of interatrial shunt. The right atrium is normal in size. Aortic Valve There is moderate calcification of the aortic valve. There is moderate thickening of the aortic valve. There is severe aortic valve stenosis. There is mild aortic valve regurgitation. Dimensionless index is 0.21 consistent with severe aortic stenosis despite mean gradient of 36 mmHg. Mitral Valve There is mild anterior and moderate posterior mitral leaflet thickening. There is moderate mitral annular calcification. There is trace mitral valve regurgitation. There is no mitral valve stenosis. Pulmonic Valve The pulmonic valve is likely normal. There is trace pulmonic valve regurgitation. Tricuspid Valve Normal tricuspid valve structure. There is mild tricuspid valve regurgitation. The right ventricular systolic pressure is normal. The right ventricular systolic pressure is 28 mmHg. Normal right atrial pressure. There is no evidence of pulmonary hypertension. Great Vessels The pulmonary artery was not well visualized. There is no dilatation of the ascending aorta measuring 3.20 cm. There is no evidence of plaque in the aorta. Venous The inferior vena cava is normal in size and collapses greater than 50% with inspiration. Pericardium/Pleural There is no evidence of pericardial effusion. Prior Study Comparison No prior study available for comparison. Measurements 2D Linear Measurements IVSd: 1.25 0.6-0.9/0.6-1.0 cm LVIDd: 4.37 3.9-5.3/4.2-5.9 cm LVIDd Index: 2.21 2.4-3.2/2.2-3.1 cm/m2 LVIDs: 3.05 2.0-3.6 cm LVPWd: 1.03 0.7-1.1 cm LA Diam: 4.00 2.7-3.8/3.0-4.0 cm LAIDs Index: 2.02 1.5-2.3 cm/m2 LV Mass: 219.05 67-162/88-224 g LV Mass Index: 110.63 43-95/49-115 g/m2 LVOT Diam: 2.00 3.0+(-)1.3 cm 2D Systolic Function EF 4C: 61.90 >55% EF 2C: 50.90 >55% EF BiP: 55.60 >55% Mitral Valve MV Pk E: 0.89 MV PK A: 1.28 MV Decel Time: 203.00 E/A: 0.70 E'Lateral: 6.74 E'Medial: 5.77 E/E' Med: 15.40 E/E' Lat: 13.20 PHT: 60.00 MVA PHT: 3.67 Decel Antelope: 4.36 Aortic Valve AoV Pk Artemio: 3.73 AoV Mn Artemio: 2.79 AoV VTI: 0.89 AoV Pk Grad: 56.00 Aov Mn Grad: 36.00 PIPER Cont.VTI: 0.68 AI Pk Artemio: 3.97 AI Antelope: 2.16 LVOT LVOT Pk Artemio: 0.77 LVOT Mn Artemio: 0.59 LVOT VTI: 0.19 LVOT Pk Grad: 2.00 LVOT Mn Grad: 2.00 LVOT Diam: 2.00 LVOT Area: 3.14 Diastolic Function MV Pk E: 0.89 MV Pk A: 1.28 E/A: 0.70 E'Medial: 5.77 E/E' Med: 15.40 E' Laterial: 6.74 E/E' Lat: 13.20 Right Ventricle TAPSE (mm): 21.70 TVS' Artemio: 9.25 Tricuspid Valve TR Pk Artemio: 2.50 TR Pk Grad: 25.00 RA Press: 3.00 RVSP: 28.00 Great Vessels Aorta Sinus of Valsalva: 3.30 2.0-3.5 cm Ao Asc: 3.20 2.1-3.4 cm Pulmonary Valve PV Pk Artemio: 0.87 Peak PV Grad: 3.00 Updated in Other Vendor System with Status of Final Patrick Null MD electronically signed on 12/06/2023 12:25:17 PM with status of Final
== END ==
LOC: HO.CARD 09:45
PROVIDERS: PCP Internal Medicine; Visit Provider Internal Medicine
DX: R01.1 Cardiac murmur, unspecified (principal); R09.89 Other specified symptoms and signs involving the circulatory and respiratory systems
CPT/HCPCS: 93306; 93356; 93880

== ENCOUNTER → 2023-12-06 09:51 | Outpatient (BNV) | payer MEDICARE, MEDICAID, SELFPAY | PROVIDERS: PCP Internal Medicine; Visit Provider Internal Medicine Cardiovascular Disease | DX: I35.2 Nonrheumatic aortic (valve) stenosis with insufficiency (principal); I36.1 Nonrheumatic tricuspid (valve) insufficiency | CPT/HCPCS: 93306 ==

== ENCOUNTER 2023-12-07 08:47 | Outpatient (AMB) | payer MEDICARE, MEDICAID, SELFPAY ==
--- NOTE | 2023-12-07 08:58 | A.OFFVIS_ITS ---
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 Dyer Operator: Beam Dyer Operator Present Accompanied by: Spouse Allergies No Known Allergies Allergy (Verified 12/03/23 09:39) Medication List - Last Reconciled 12/07/23 by Patrick Null MD acetaminophen (Tylenol) 325 mg PO QID PRN albuterol sulfate 90 mcg/actuation 0 mcg inhalation budesonide-formoterol 160-4.5 mcg/actuation (Symbicort) 2 puffs inhalation BID 30 days cyclobenzaprine 5 mg PO TID PRN 7 days omega-3 fatty acids 0 mg PO BEDTIME HPI HPI Comments History of Present Illness Details Thank you for referring August in cardiology consultation today for management of his aortic stenosis. He recently had an echocardiogram after a murmur was heard. This shows severe aortic stenosis valve area about 0.7 cm2 with mean gradient of 36 mmHg consistent with paradoxical low-flow aortic stenosis with dimensionless index of 0.21. Patient is accompanied by his . Says that over the last year he has been more short of breath going up a flight of stairs although patient continues to denied. He said he has COPD and is therefore getting more short of breath. However he said his COPD is under much better control is improved compared to 2 years ago and he has been seen by neuro psych sales specialist and has been told that his lung function is improved. He also had myocardial infarction in 2011 and underwent a bare metal stent to proximal LAD. He would nonobstructive disease other segments. He has currently not on aspirin as he said he had some bleeding in his eye is also not on statin therapy as he said he is developed blurry vision related to it. He takes other medications. He has currently not smoking. He denies any orthopnea, PND, leg edema. Denies any exertional chest pain, lightheadedness. No syncopal episodes. He says since August he has been very limited due to back injury and had to undergo an urgent spine surgery a month ago. He is still recuperating from that [facility] Medical History (Updated 12/07/23 @ 09:40 by Patrick Null MD) Aortic stenosis Interstitial lung disease History of smoking at least 1 pack per day for at least 30 years History of retinal hemorrhage Personal history of nicotine dependence Prediabetes Hyperlipidemia Hypertension, essential CAD (coronary artery disease) COPD (chronic obstructive pulmonary disease) Surgical History History of heart artery stent (~2010) Social History Alcohol intake: current Alcohol intake frequency: does not drink Patient Tobacco Use Status: Former Tobacco user Quit Date: 2006 Tobacco use type: Cigarette Years Smoked: 44 (onset 17, 1.5ppd x 44yrs, 65pyh - quit 2006) 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 Review of Systems Const Denies chills, Denies daytime sleepiness, Denies fatigue, Denies fever(s), Denies frequent falls, Denies poor appetite, Denies snoring, Denies stops breathing during sleep, Denies weakness, Denies weight gain and Denies weight loss Eyes Denies loss of vision ENT Denies dizziness and Denies hearing loss Card Denies chest pain, Denies claudication, Denies leg edema, Denies lightheadedness, Denies palpitations, Denies dyspnea, Reports dyspnea on exertion and Denies orthopnea Resp Denies cough, Denies excessive phlegm production, Denies dyspnea, Reports dyspnea on exertion, Denies snoring and Denies wheezing GI Denies abdominal pain, Denies hematochezia, Denies change in bowel habits, Denies nausea and Denies vomiting Denies dysuria and Denies urinary frequency Musc Denies arthralgias, Denies muscle weakness, Denies numbness and Denies other (frequent falls) Skin/Breast Denies nail changes and Denies rash Neuro Denies Abnormal speech present, Denies dizziness, Denies frequent falls, Denies loss of vision, Denies memory loss, Denies numbness and Denies weakness Psych Denies depression and Denies memory loss Endo Denies fatigue and Denies palpitations Sammy/Lymph Reports easy bruising and Reports other (anemia) Aller/Immun Denies wheezing Physical Exam Vital Signs: BMI result Body Mass Index 26.6 Const General: cooperative, comfortable, no acute distress, alert and awake Nutritional Appearance: overweight Orientation/consciousness: patient oriented x3 HEENT Head: Yes normocephalic and Yes atraumatic Neck Neck: Yes trachea midline, Yes supple and Yes no JVD Carotids: delayed carotid upstroke Resp Effort & Inspection: normal respiratory effort Auscultation: no rales, no wheezes and diminished lung sounds Cardio Jugular venous distension: no JVD Rate: regular rate Rhythm: abnormal rhythm with ectopic beats Heart sounds: S1 normal heart sound present and Murmur heart sound present systolic late, decrescendo, crescendo, soft and II/ GI Auscultation: normal bowel sounds Skin General skin exam: no rashes or lesions noted Neuro General: patient oriented x3 and no focal motor deficits Speech: No Abnormal speech present Extrem General: Yes no clubbing, cyanosis or edema Psych Appearance: grossly normal Office Procedures EKG Details: EKG shows normal sinus rhythm with unifocal frequent PVCs with no significant ST T wave changes [id number], Complete Assessment & Plan Assessment & Plan (1) Aortic stenosis: Code(s): I35.0 - Nonrheumatic aortic (valve) stenosis Plan: Patient with echocardiographic finding of severe aortic stenosis. Clinically his murmur is not that prominent but probably could be related to his COPD and lung expansion. At this point time given his echo findings and symptoms of shortness of breath which have been worse over the last year despite improving COPD therapy and improving lung function as per Pulmonary I think it is related to aortic stenosis and symptoms related to it. I think he would benefit from transcatheter aortic valve replacement. Discussed pathophysiology of aortic stenosis in details and hemodynamic changes that can happen with it and prognosis with symptomatic aortic stenosis. He showed understanding although he is trying to downplay the symptoms. Also discussed in details about the process of transcatheter aortic valve replacement. He is anxious about it but understands and agrees especially his says that he needs to pursue this. Advise meanwhile to start low-dose aspirin therapy and statin therapy. Advised to call me if he develops any symptoms related to it. He will need a cardiac catheterization to evaluate for coronary artery disease as well as hemodynamics. Will schedule for that in the future. Risks, benefits, alternatives to cardiac catheterization were discussed. Will need blood work for the same. (2) CAD (coronary artery disease): Code(s): I25.10 - Atherosclerotic heart disease of [place] coronary artery without angina pectoris Plan: CAD without any symptoms at that point in time. He had bare metal stent placed to the LAD. He has currently no symptoms except for shortness of breath. There is high likelihood of progressive coronary artery disease given that he has not any risk factor modification. Advise low-dose aspirin therapy and will start him on Crestor 10 mg daily. Target goal LDL less than 70 mg/dL. Cardiac catheterization as above. Will follow up in the clinic in 4 weeks time, sooner p.r.n.. Thank you for allowing me to partake in his care Orders: Orders Cardiac Cath CHRISTINA Diagnostic 2 Weeks I35.0 - Nonrheumatic aortic (valve) stenosis Basic Metabolic Panel Today I25.10 - Atherosclerotic heart disease of [place] coronary artery without angina pectoris, I35.0 - Nonrheumatic aortic (valve) stenosis Complete Blood Count Auto Diff Today I25.10 - Atherosclerotic heart disease of [place] coronary artery without angina pectoris, I35.0 - Nonrheumatic aortic (valve) stenosis Prothrombin Time INR Today I25.10 - Atherosclerotic heart disease of [place] coronary artery without angina pectoris, I35.0 - Nonrheumatic aortic (valve) stenosis Referrals Cardiology Referral I35.0 - Nonrheumatic aortic (valve) stenosis Medications: New aspirin (Ecotrin Low Strength) 81 mg PO DAILY 30 tabs 5RF I35.0 - Nonrheumatic aortic (valve) stenosis rosuvastatin (Crestor) 10 mg PO DAILY 30 tabs 5RF I35.0 - Nonrheumatic aortic (valve) stenosis Coding Level of Care Code New Pt Level 4 (63062) Diagnoses Aortic stenosis I35.0 CAD (coronary artery disease) I25.10 CPT Codes EKG - CPT: [id number], Complete ([id number])
[2023-12-07 08:59] VITALS: BMI 26.6
== END 2023-12-07 09:41 | disposition home or self-care (01) ==
PROVIDERS: PCP Internal Medicine; Visit Provider Internal Medicine Cardiovascular Disease
DX: I35.0 Nonrheumatic aortic (valve) stenosis (principal); I25.10 Atherosclerotic heart disease of native coronary artery without angina pectoris; I49.3 Ventricular premature depolarization
CPT/HCPCS: 93010; 99204

== ENCOUNTER → 2023-12-07 08:47 | Outpatient (BNVA) | payer MEDICARE, MEDICAID, SELFPAY | PROVIDERS: PCP Internal Medicine; Visit Provider Internal Medicine Cardiovascular Disease | DX: I35.0 Nonrheumatic aortic (valve) stenosis (principal); I25.10 Atherosclerotic heart disease of native coronary artery without angina pectoris | CPT/HCPCS: 93005; 99202 ==

== ENCOUNTER 2023-12-10 10:21 | Outpatient (REF) | payer MEDICARE, MEDICAID, SELFPAY ==
[2023-12-10 10:40] LABS: MANUAL DIFF FLAG NO
[2023-12-10 10:44] LABS: Basophils Percent Auto 0.4 % (0-2); Eosinophils Absolute Auto 0.1 X10*3/uL (0.0-0.4); Eosinophils Percent Auto 1.8 % (0-4); Hematocrit 45.8 % (42.0-52.0); Hemoglobin 15.1 g/dl (14.0-18.0); Imm Gran Abs Auto 0.02 X10*3/uL (0.00-0.03); Imm Gran Pct Auto 0.3 % (0.0-0.4); Lymphocytes Absolute Auto 1.9 X10*3/uL (1.2-4.9); Mean Corpuscular Hemoglobin 30.3 pg (27.0-33.0); Mean Platelet Volume 10.5 fL (9.4-12.4); Monocytes Absolute Auto 0.4 X10*3/uL (0.1-1.2); Monocytes Percent Auto 5.1 % (2-11); Neutrophils Absolute Auto 4.8 x10*3/uL (2.0-8.3); Neutrophils Percent Auto 66.4 % (45-73); Platelet Count 332 X10*3/uL (160-400); Red Blood Count 4.98 X10*6/uL (4.60-5.80); Red Cell Distribution Width 13.5 % (11.0-16.0); White Blood Count 7.3 X10*3/uL (4.8-10.8)
[2023-12-10 10:48] LABS: Prothrombin Time 11.6 SEC (11.1-13.3)
[2023-12-10 11:00] LABS: Estimated Average Glucose 126 mg/dL
[2023-12-10 11:15] LABS: Anion Gap 14 (12-20); Blood Urea Nitrogen 21 mg/dL (9-16); Calcium 9.2 mg/dL (8.4-10.2); Carbon Dioxide 25 mmol/L (22-29); Chloride 104 mmol/L (96-108); Estimated Glomerular Filt Rate > 60; Glucose Random 140 mg/dL (60-115); Potassium 4.3 mmol/L (3.3-5.1); Sodium 139 mmol/L (135-145)
[2023-12-10 11:17] LABS: Alanine Aminotransferase 11 U/L (0-40); Albumin Level 3.9 g/dL (3.5-5.0); Alkaline Phosphatase 109 U/L (39-117); Anion Gap 13 (12-20); Aspartate Amino Transferase 15 U/L (5-37); Bilirubin Total 0.4 mg/dL (0.0-1.0); Blood Urea Nitrogen 21 mg/dL (9-16); Calcium 9.3 mg/dL (8.4-10.2); Carbon Dioxide 25 mmol/L (22-29); Chloride 105 mmol/L (96-108); Cholesterol 199 mg/dL (<200); Estimated Glomerular Filt Rate 59; Glucose Fasting 142 mg/dL (60-99); HDL Cholesterol 42 mg/dL (>40); LDL Cholesterol Calculated 132 mg/dL (<100); Potassium 4.3 mmol/L (3.3-5.1); Sodium 139 mmol/L (135-145); Total Protein 8.1 g/dL (6.5-8.0); Triglycerides 127 mg/dL (<150)
[2023-12-10 12:19] LABS: Prostate Specific Antigen Scr 0.85 ng/mL (<0.05-4.0)
== END 2023-12-10 10:22 | disposition home or self-care (01) ==
LOC: HO.10HDL 10:21
PROVIDERS: Referring Provider Internal Medicine; Visit Provider Internal Medicine Cardiovascular Disease
DX: I35.0 Nonrheumatic aortic (valve) stenosis (principal); I25.10 Atherosclerotic heart disease of native coronary artery without angina pectoris; J44.9 Chronic obstructive pulmonary disease, unspecified; R73.03 Prediabetes
CPT/HCPCS: 36415; 80048; 80053; 80061; 83036; 84153; 85025; 85610

== ENCOUNTER → 2023-12-18 23:59 | Outpatient (BNV) | payer MEDICARE, MEDICAID, SELFPAY | PROVIDERS: PCP Internal Medicine; Visit Provider Internal Medicine Cardiovascular Disease | DX: I35.0 Nonrheumatic aortic (valve) stenosis (principal) | CPT/HCPCS: 93460; 93566; 99152 ==

== ENCOUNTER 2024-01-03 09:00 | Outpatient (AMB) | payer MEDICARE, MEDICAID, SELFPAY ==
--- NOTE | 2024-01-03 09:14 | A.OFFVIS_ITS ---
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: No Allergies No Known Allergies Allergy (Verified 01/03/24 09:17) Medication List - Last Reconciled 01/03/24 by Sherrill Ta NP-C acetaminophen (Tylenol) 325 mg PO QID PRN albuterol sulfate 90 mcg/actuation 0 mcg inhalation aspirin (Ecotrin Low Strength) 81 mg PO DAILY budesonide-formoterol 160-4.5 mcg/actuation (Symbicort) 2 puffs inhalation BID 30 days mometasone-formoterol 200-5 mcg/actuation (Dulera) 2 puffs inhalation BID 30 days omega-3 fatty acids 0 mg PO BEDTIME rosuvastatin (Crestor) 10 mg PO DAILY HPI Follow up post cardiac cath HPI Details August is a 78-year-old male with past medical history of hypertension, hyperlipidemia, pre diabetes, CAD with stent to the proximal LAD 2011, severe aortic stenosis, who recently underwent cardiac catheterization and presents for follow-up. Today he reports that his right groin catheterization site is feeling good. He has some shortness of breath with exertion which is not new. He describes having history of COPD and prior history of smoking. No chest discomfort at rest or with activity, palpitations, lightheadedness, presyncope, syncope, PND, orthopnea or edema. He takes his meds as directed. is present. He has an appointment with Dr. Huerta on 01/07/2024. [facility] Medical History Aortic stenosis Interstitial lung disease History of smoking at least 1 pack per day for at least 30 years History of retinal hemorrhage Personal history of nicotine dependence Prediabetes Hyperlipidemia Hypertension, essential CAD (coronary artery disease) COPD (chronic obstructive pulmonary disease) Surgical History (Updated 01/03/24 @ 11:49 by Sherrill Ta, SERGO-C) History of heart artery stent (~2010) Social History Alcohol intake: current Alcohol intake frequency: does not drink Patient Tobacco Use Status: Former Tobacco user Quit Date: 2006 Tobacco use type: Cigarette Years Smoked: 44 (onset 17, 1.5ppd x 44yrs, 65pyh - quit 2006) 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 Review of Systems Const All systems reviewed & are unremarkable except as noted in HPI and below ENT Denies dizziness Card Denies chest pain, Denies chest pain at rest, Denies chest pain with activity, Denies rapid heart rate, Denies pedal edema, Denies edema, Denies leg edema, Denies lightheadedness, Denies palpitations, Denies dyspnea, Reports dyspnea on exertion and Denies orthopnea Resp Denies cough, Denies dyspnea and Reports dyspnea on exertion GI Denies hematochezia and Denies change in stool character Musc Details: back discomfort Reports abnormal gait (uses cane), Denies limited range of motion, Denies muscle cramps, Denies muscle weakness, Denies numbness, Denies radiating pain into limb, Denies stiffness and Denies tingling Neuro Reports abnormal gait (uses cane), Denies dizziness, Denies numbness and Denies tingling Endo Denies palpitations Physical Exam Vital Signs: Last Vital Signs Pulse 88 01/03/24 09:15 BP 142/80 H 01/03/24 09:15 BMI result Body Mass Index 26.8 Const General: cooperative, healthy appearing, comfortable and no acute distress Orientation/consciousness: patient oriented x3 Neck Neck: Yes normal visual inspection and Yes no JVD Resp Effort & Inspection: normal respiratory effort Auscultation: clear to auscultation bilaterally, no rales, no rhonchi and no wheezes Cardio Jugular venous distension: no JVD Rate: regular rate Rhythm: regular rhythm Heart sounds: S2 normal heart sound present, no gallops, Murmur heart sound present (faint systolic ejection murmur, more noted on left sternal border) and no rubs Neuro General: patient oriented x3 Extrem Other: right groin cath site well healed. Femoral pulse palpable, no bruit, No swelling. General: Yes normal to inspection, No no pedal edema and No calf tenderness Psych Appearance: grossly normal Mental Status: mental status grossly normal Speech and movement: Normal speech and movement present Assessment & Plan Assessment & Plan (1) S/P cardiac cath: Comment: 12/18/2023, lad minimal irregularities, prior stent in the mid LAD patent, left circumflex mild irregularities, RCA proximal 50-60% stenosis, PA 56/14, wedge 12, aortic mean gradient 41 mmHg, aortic valve area 0.71 Code(s): Z98.890 - Other specified postprocedural states Plan: Diagnostic cardiac catheterization done as part of TAVR evaluation. Right groin catheterization site well healed, easily palpable femoral pulse and no bruit. (2) CAD (coronary artery disease): Code(s): I25.10 - Atherosclerotic heart disease of [place] coronary artery without angina pectoris Plan: Known history of CAD with prior by EMS to the proximal LAD 2011. No recent reports of anginal sounding symptoms. He did undergo cardiac catheterization as above showing patent stent. Had been off aspirin and statin however restarted on last visit and he is tolerating without clear side effects. At this time will continue on aspirin indefinitely for stable CAD. Continue rosuvastatin with ideal LDL goal less than 70. Will plan for a fasting lipid profile prior to his next visit. Signs and symptoms of angina reviewed with him. (3) History of heart artery stent: Onset Date: ~2010 Comment: (2010) Code(s): Z95.5 - Presence of coronary angioplasty implant and graft Plan: Bare metal stent Mid LAD (4) Aortic stenosis: Code(s): I35.0 - Nonrheumatic aortic (valve) stenosis Plan: History of aortic stenosis. Last echocardiogram 12/06/2023 showing EF 55-60%, mild LVH with impaired relaxation, mildly dilated left atrium, severe aortic stenosis with mean gradient 36 mmHg, aortic valve area 0.68 centimeter sq. He has chronic shortness of breath with exertion. He has a known history of COPD however some of his shortness of breath is most likely related to his severe aortic stenosis. Activity level is limited by back surgery and chronic discomfort. He is currently ambulating with a cane. He has been referred to Dr. Huerta for TAVR evaluation. He has an appointment on 01/07/2024. Anticipate that procedure will be done in the next few months. At this time will arrange for cardiology follow-up in 3 months, sooner if needed. Signs and symptoms of severe reviewed with him. Emergency care if ever needed for symptoms. (5) COPD (chronic obstructive pulmonary disease): Comment: (COPD in long-time smoker ) PULM . FUNCTION TEST IN 2020 C/W mild to moderate obstructive disorder , with good response to bronchodilator therapy. ( ACOS ) HE IS DOING VERY WELL WITH THE CURRENT MEDICAL REGIMEN, ADVAIR WAS CHANGED TO SYMBICORT. Code(s): J44.9 - Chronic obstructive pulmonary disease, unspecified Plan: Follows with pulmonology (6) Hypertension, essential: Code(s): I10 - Essential (primary) hypertension Plan: Adequately controlled at present. No med changes made (7) Hyperlipidemia: Code(s): E78.5 - Hyperlipidemia, unspecified Plan: Fraser LDL goal less than 70. Recently started back on rosuvastatin. Plan for fasting lipids prior to next visit Plan Time spent on chart review, documentation, interview and assessment Orders: Orders Lipid Panel 2 Months E78.5 - Hyperlipidemia, unspecified Coding Level of Care Code Est Pt Level 4 (76174) Diagnoses S/P cardiac cath Z98.890 CAD (coronary artery disease) I25.10 History of heart artery stent Z95.5 Aortic stenosis I35.0 COPD (chronic obstructive pulmonary disease) J44.9 Hypertension, essential I10 Hyperlipidemia E78.5 Time Spent (min) 28
[2024-01-03 09:15] VITALS: BP 142/80; PULSE 88; BMI 26.8
== END 2024-01-03 09:48 | disposition home or self-care (01) ==
PROVIDERS: PCP Internal Medicine; Visit Provider Nurse Practitioner Family
DX: Z98.890 Other specified postprocedural states (principal); I25.10 Atherosclerotic heart disease of native coronary artery without angina pectoris; Z95.5 Presence of coronary angioplasty implant and graft; I35.0 Nonrheumatic aortic (valve) stenosis; J44.9 Chronic obstructive pulmonary disease, unspecified; I10 Essential (primary) hypertension; E78.5 Hyperlipidemia, unspecified
CPT/HCPCS: 99214

== ENCOUNTER → 2024-01-03 09:00 | Outpatient (BNVA) | payer MEDICARE, MEDICAID, SELFPAY | PROVIDERS: PCP Internal Medicine; Visit Provider Nurse Practitioner Family | DX: I25.10 Atherosclerotic heart disease of native coronary artery without angina pectoris (principal); I35.0 Nonrheumatic aortic (valve) stenosis; I10 Essential (primary) hypertension; E78.5 Hyperlipidemia, unspecified; J44.9 Chronic obstructive pulmonary disease, unspecified; Z98.890 Other specified postprocedural states; Z95.5 Presence of coronary angioplasty implant and graft | CPT/HCPCS: 99212 ==

== ENCOUNTER 2024-02-21 09:21 | Outpatient (AMB) | payer MEDICARE, MEDICAID, SELFPAY ==
[2024-02-21 09:25] VITALS: BP 142/72; PULSE 83; O2SAT 95; BMI 26.3
--- NOTE | 2024-02-21 09:25 | A.OFFVIS_ITS ---
Intake Vital Signs 02/21/24 09:25 Height 5 ft 10 in Weight 183 lb BMI 26.3 BP 142/72 H Blood Pressure Location Lt brachial Position Sitting Pulse 83 Pulse Source Pulse Oximeter Pulse Oximetry (%) 95 Oxygen Delivery Method Room Air Intake Visit Reasons: Sick visit prod cough Intake Note: pt is here for follow up and pre-op reassurance for heart valve replacement, he was coughing with some yellow production but better now, but dealing post nasal drip, which causes coughing jags. 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 Allergies No Known Allergies Allergy (Verified 02/21/24 09:51) Medication List - Last Reconciled 02/21/24 by Leti Casas MD acetaminophen (Tylenol) 325 mg PO QID PRN albuterol sulfate 90 mcg/actuation 0 mcg inhalation aspirin (Ecotrin Low Strength) 81 mg PO DAILY inhalational spacing device (Aerochamber MV spacer) As directed mometasone-formoterol 200-5 mcg/actuation (Dulera) 2 puffs inhalation BID 30 d ays prednisone 20 mg PO BID 5 days rosuvastatin (Crestor) 10 mg PO DAILY Do you need a note to return to daycare/school/sports/work: No HPI Sick visit prod cough HPI Details August is 78 years old gentleman with chronic obstructive pulmonary disease, which has been relatively. Stable and controlled Recently his med regimen changed from Symbicort to Dulera 200-5 2 puffs b.i.d., and he is still not adjusting to that. He claims that for the past 2 weeks he was having increased cough and shortness of breath with some wheezing at night, but no fever or chills. The cough was mostly dry which is finally down to minimal. He describes some issue with the Dulera med inhaler, stating that it finishes couple weeks before the due date, and then he is not able to get it refilled. He is to undergo aortic valve replacement next week and he does have some degree of anxiety about that as well. [facility] Medical History Aortic stenosis Interstitial lung disease History of smoking at least 1 pack per day for at least 30 years History of retinal hemorrhage Personal history of nicotine dependence Prediabetes Hyperlipidemia Hypertension, essential CAD (coronary artery disease) COPD (chronic obstructive pulmonary disease) Surgical History History of heart artery stent (~2010) Social History Alcohol intake: current Alcohol intake frequency: does not drink Patient Tobacco Use Status: Former Tobacco user Quit Date: 2006 Tobacco use type: Cigarette Years Smoked: 44 (onset 17, 1.5ppd x 44yrs, 65pyh - quit 2006) 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 Review of Systems Const All systems reviewed & are unremarkable except as noted in HPI and below Eyes Reports no additional complaints ENT Reports no additional complaints Card Denies chest pain, Denies irregular heart rhythm and Denies leg edema Resp Reports as per HPI GI Reports no additional complaints Reports no additional complaints Musc Reports no additional complaints Skin/Breast Reports system reviewed and no additional complaints, except as documented Neuro Reports no additional complaints Psych Reports no additional complaints Physical Exam Vital Signs: Last Vital Signs Pulse 83 02/21/24 09:25 BP 142/72 H 02/21/24 09:25 Pulse Ox 95 02/21/24 09:25 Oxygen Delivery Method Room Air 02/21/24 09:25 BMI result Body Mass Index 26.3 Const General: healthy appearing, comfortable, no acute distress, alert and awake Orientation/consciousness: patient oriented x3 HEENT Head: Yes normal to inspection General nose exam: No nasal polyps present and No nasal discharge present Face and sinus: Yes sinuses nontender Mouth: oropharynx normal Throat: Yes posterior oropharynx normal Eyes General: appearance normal, both eyes and all related structures Neck Neck: Yes normal visual inspection, Yes no lymphadenopathy, Yes trachea midline and Yes no JVD Thyroid: Thyroid normal Chest Chest palpation & inspection: normal inspection of the chest, normal palpation of entire chest wall and no tenderness Resp Other: Percussion note is resonant on both sides. Breath sounds are distant, equal with prolonged expiratory phase. A few fine expiratory wheezes heard over the lower lobes. Cardio Palpation: normal PMI Rate: regular rate Rhythm: regular rhythm Heart sounds: no gallops and no murmurs Peripheral pulses: Peripheral pulses 2+ throughout GI Palpation (GI): Soft to palpation, nontender, No hepatosplenomegaly present and no masses Auscultation: normal bowel sounds Back/Spine/Pelvis Thoracic/Lumbar Spine: thoracic and lumbar spine normal to inspection Skin General skin exam: no rashes or lesions noted Neuro General: patient oriented x3 and no focal motor deficits Cranial nerves: Yes CN's II-XII intact bilaterally Extrem General: Yes normal to inspection, Yes no clubbing, cyanosis or edema and Yes no calf tenderness Psych Appearance: grossly normal and well kempt Speech and movement: Normal speech and movement present Assessment & Plan Assessment & Plan (1) COPD (chronic obstructive pulmonary disease): Comment: (COPD in long-time smoker ) PULM . FUNCTION TEST IN 2020 C/W mild to moderate obstructive disorder , with good response to bronchodilator therapy. ( ACOS ) HE HAS BEEN DOING DOING VERY WELL BUT SINCE THE SYMBICORT WAS USED TO DULERA, HE IS HAVING SOME DIFFICULTY IN ADJUSTING TO IT. AT PRESENT HE HAS A MILD EXACERBATION DUE TO BRONCHOSPASM. Code(s): J44.9 - Chronic obstructive pulmonary disease, unspecified Plan: CONTINUE DULERA 200-5 2 PUFFS B.I.D., PROPER USAGE IS EXPLAINED. HE SHOULD BE ABLE TO GET 1 MONTH SUPPLY AT A TIME, WOULD ALSO PRESCRIBE AEROCHAMBER, A SPACING DEVICE WHICH WOULD MAKE IT EASY FOR HIM TO USE THE INHALER. HE COURSE OF PREDNISONE 20 MG B.I.D. ORDERED SO THAT HE CAN HAVE OPTIMAL LUNG FUNCTION BEFORE THE CARDIAC PROCEDURE. (2) History of smoking at least 1 pack per day for at least 30 years: Comment: . HISTORY OF SMOKING IN THE PAST QUIT in 2006 . Code(s): Z87.891 - Personal history of nicotine dependence Plan: HE IS DETERMINED NOT TO SMOKE Medications: New prednisone 20 mg PO BID 10 tabs 0RF copd excerbation 5 days inhalational spacing device (Aerochamber MV spacer) As directed 10 ea 0RF Refilled mometasone-formoterol 200-5 mcg/actuation (Dulera) 2 puffs inhalation BID 13 grams 4RF 30 days Coding Level of Care Code Est Pt Level 3 (07052) Diagnoses COPD (chronic obstructive pulmonary disease) J44.9 History of smoking at least 1 pack per day for at least 30 years Z87.891
== END 2024-02-21 09:46 | disposition home or self-care (01) ==
PROVIDERS: PCP Internal Medicine; Visit Provider Internal Medicine
DX: J44.9 Chronic obstructive pulmonary disease, unspecified (principal); Z87.891 Personal history of nicotine dependence
CPT/HCPCS: 99213

== ENCOUNTER → 2024-02-21 09:21 | Outpatient (BNVA) | payer MEDICARE, MEDICAID, SELFPAY | PROVIDERS: PCP Internal Medicine; Visit Provider Internal Medicine | DX: J44.9 Chronic obstructive pulmonary disease, unspecified (principal); Z87.891 Personal history of nicotine dependence | CPT/HCPCS: 99212 ==

== ENCOUNTER → 2024-03-24 09:50 | Outpatient (REF) | payer MEDICARE, MEDICAID, SELFPAY ==
--- NOTE | 2024-03-24 09:53 | CA_ITS ---
Transthoracic Echocardiogram Patient (Last, First, Middle): August Rivera H Gender: Male Date of : 1945 Age: 78 Procedure Date: 03/24/2024 Procedure Type: Transthoracic Echocardiogram Location: OP Height: 177.8 cm Weight: 81.65 kg BSA: 2.00 m2 Heart Rate: 67 bpm BP: 140 / 72 mmHg Glove Sewer: SB Referring MD: Karolina Huerta MD Block Saw Operator: Patrick Null MD Symptoms: S/P AVR Study Quality: Adequate ECG Rhythm: Sinus Conclusions: - 1. Normal LV ejection fraction of 65-70% with impaired relaxation filling pattern 2. Mildly dilated left atrium 3. Normally function bioprosthetic aortic valve with mean gradient of 10 mmHg 4. Normal RV systolic pressure 5. No gross pericardial effusion Findings Left Ventricle Normal left ventricular size, thickness, and systolic function. The visually estimated ejection fraction is between 65-70%. Spectral Doppler is indicative of an impaired relaxation filling pattern. E/E prime ratio is between 8 and 15 consistent with indeterminate filling pressures. There is mild septal asymmetric hypertrophy. Right Ventricle Mildly increased right ventricular cavity size. There is normal right ventricular systolic function. Atria The left atrium is mildly dilated. There is no evidence of interatrial shunt. The right atrium is likely dilated. Aortic Valve A bioprosthetic aortic valve is present. The prosthetic aortic valve appears to be functioning normally. The mean gradient is 10 mmHg. There is no aortic valve regurgitation. Mitral Valve There is mild anterior and posterior mitral leaflet thickening. There is mild mitral annular calcification. There is trace mitral valve regurgitation. There is no mitral valve stenosis. Pulmonic Valve The pulmonic valve was not well visualized. Tricuspid Valve Normal tricuspid valve structure. There is mild tricuspid valve regurgitation. Normal right atrial pressure. Moderate pulmonary hypertension is present. Great Vessels The pulmonary artery was not well visualized. There is no dilatation of the ascending aorta measuring 3.20 cm. Venous The inferior vena cava is normal in size and collapses greater than 50% with inspiration. Pericardium/Pleural There is no evidence of pericardial effusion. Prior Study Comparison Changes noted compared to prior study dated: 12/06/2023. Normally functioning bioprosthetic aortic valve as replaced severe aortic stenosis Measurements 2D Linear Measurements IVSd: 1.37 0.6-0.9/0.6-1.0 cm LVIDd: 4.83 3.9-5.3/4.2-5.9 cm LVIDd Index: 2.42 2.4-3.2/2.2-3.1 cm/m2 LVIDs: 3.32 2.0-3.6 cm LVPWd: 1.02 0.7-1.1 cm LA Diam: 4.00 2.7-3.8/3.0-4.0 cm LAIDs Index: 2.00 1.5-2.3 cm/m2 LV Mass: 274.24 67-162/88-224 g LV Mass Index: 137.12 43-95/49-115 g/m2 LVOT Diam: 2.00 3.0+(-)1.3 cm 2D Systolic Function EF 4C: 64.50 >55% EF 2C: 66.50 >55% EF BiP: 66.40 >55% Mitral Valve MV Pk E: 0.99 MV PK A: 1.23 MV Decel Time: 266.00 E/A: 0.80 E'Lateral: 6.64 E'Medial: 5.11 E/E' Med: 19.40 E/E' Lat: 14.90 PHT: 78.00 MVA PHT: 2.82 Decel [place]: 3.72 Aortic Valve AoV Pk Artemio: 2.54 AoV Mn Artemio: 1.45 AoV VTI: 0.43 AoV Pk Grad: 26.00 Aov Mn Grad: 10.00 PIPER Cont.VTI: 1.63 LVOT LVOT Pk Artemio: 1.09 LVOT Mn Artemio: 0.65 LVOT VTI: 0.23 LVOT Pk Grad: 5.00 LVOT Mn Grad: 2.00 LVOT Diam: 2.00 LVOT Area: 3.14 Diastolic Function MV Pk E: 0.99 MV Pk A: 1.23 E/A: 0.80 E'Medial: 5.11 E/E' Med: 19.40 E' Laterial: 6.64 E/E' Lat: 14.90 Right Ventricle TAPSE (mm): 24.30 TVS' Artemio: 14.20 Tricuspid Valve TR Pk Artemio: 3.39 TR Pk Grad: 46.00 RA Press: 3.00 RVSP: 49.00 Great Vessels Aorta Ao Asc: 3.20 2.1-3.4 cm Pulmonary Valve PV Pk Artemio: 1.23 Peak PV Grad: 6.00 Updated in Other Vendor System with Status of Final Patrick Null MD electronically signed on 03/24/2024 11:42:03 AM with status of Final
== END ==
LOC: HO.CARD 09:50
PROVIDERS: PCP Internal Medicine; Visit Provider Internal Medicine Cardiovascular Disease
DX: Z95.4 Presence of other heart-valve replacement (principal)
CPT/HCPCS: 93306

== ENCOUNTER → 2024-03-24 09:53 | Outpatient (BNV) | payer MEDICARE, MEDICAID, SELFPAY | PROVIDERS: PCP Internal Medicine; Visit Provider Internal Medicine Cardiovascular Disease | DX: I36.1 Nonrheumatic tricuspid (valve) insufficiency (principal); Z95.3 Presence of xenogenic heart valve; I27.20 Pulmonary hypertension, unspecified | CPT/HCPCS: 93306 ==

== ENCOUNTER 2024-06-02 09:35 | Outpatient (AMB) | payer MEDICARE, MEDICAID, SELFPAY ==
[2024-06-02 09:41] VITALS: BP 142/70; PULSE 63; O2SAT 96; BMI 26.3
--- NOTE | 2024-06-02 09:41 | A.OFFVIS_ITS ---
Vital Signs 06/02/24 09:41 Height 5 ft 10 in Weight 182 lb 15.739 oz BMI 26.3 BP 142/70 H Blood Pressure Location Lt brachial Position Sitting Pulse 63 Pulse Source Pulse Oximeter Pulse Oximetry (%) 96 Oxygen Delivery Method Room Air Intake Visit Reasons: copd Intake Note: pt is here for follow up and states he had a valve put in, but breathing is not really better. Vocational Director Required: No Allergies No Known Allergies Allergy (Verified 06/02/24 10:01) Medication List - Last Reconciled 06/02/24 by Leti Casas MD acetaminophen (Tylenol) 325 mg PO QID PRN albuterol sulfate 90 mcg/actuation 0 mcg inhalation aspirin (Ecotrin Low Strength) 81 mg PO DAILY inhalational spacing device (Aerochamber MV spacer) As directed mometasone-formoterol 200-5 mcg/actuation (Dulera) 2 puffs inhalation BID 30 days rosuvastatin (Crestor) 10 mg PO DAILY Do you need a note to return to daycare/school/sports/work: No HPI HPI copd: Details: Yajaira is 78 years old gentleman who did have aortic well replacement, successfully, Overall doing well but still gets short of breath easily. And has mild. intermittent cough He is tolerating Dulera, OK, If he misses the dose of Dulera he can feel getting more short of breath on exertion. He uses rescue inhaler, albuterol only once or twice a week. .No active issues at this time [facility] Medical History Aortic stenosis Interstitial lung disease History of smoking at least 1 pack per day for at least 30 years History of retinal hemorrhage Personal history of nicotine dependence Prediabetes Hyperlipidemia Hypertension, essential CAD (coronary artery disease) COPD (chronic obstructive pulmonary disease) Surgical History History of heart artery stent (~2010) Social History Alcohol intake: current Alcohol intake frequency: does not drink Patient Tobacco Use Status: Former Tobacco user Tobacco use type: Cigarette Years Smoked: 45 (onset 17, 1.5ppd x 44yrs, 65pyh - quit 2006) 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 Review of Systems Const All systems reviewed & are unremarkable except as noted in HPI and below Eyes Reports no additional complaints ENT Reports no additional complaints Card Denies chest pain, Denies irregular heart rhythm and Denies leg edema Resp Reports as per HPI GI Reports no additional complaints Reports no additional complaints Musc Reports no additional complaints Skin/Breast Reports system reviewed and no additional complaints, except as documented Neuro Reports no additional complaints Psych Reports no additional complaints Physical Exam Vital Signs: Last Vital Signs Pulse 63 06/02/24 09:41 BP 142/70 H 06/02/24 09:41 Pulse Ox 96 06/02/24 09:41 Oxygen Delivery Method Room Air 06/02/24 09:41 BMI result Body Mass Index 26.3 Const General: healthy appearing, comfortable, no acute distress, alert and awake Orientation/consciousness: patient oriented x3 HEENT Head: Yes normal to inspection General nose exam: No nasal polyps present and No nasal discharge present Face and sinus: Yes sinuses nontender Mouth: oropharynx normal Throat: Yes posterior oropharynx normal Eyes General: appearance normal, both eyes and all related structures Neck Neck: Yes normal visual inspection, Yes no lymphadenopathy, Yes trachea midline and Yes no JVD Thyroid: Thyroid normal Chest Chest palpation & inspection: normal inspection of the chest, normal palpation of entire chest wall and no tenderness Resp Other: Percussion note is resonant on both sides. Breath sounds are distant, equal with prolonged expiratory phase. No wheezes or crepitations are heard. Cardio Palpation: normal PMI Rate: regular rate Rhythm: regular rhythm Heart sounds: no gallops and no murmurs Peripheral pulses: Peripheral pulses 2+ throughout GI Palpation (GI): Soft to palpation, nontender, No hepatosplenomegaly present and no masses Auscultation: normal bowel sounds Back/Spine/Pelvis Thoracic/Lumbar Spine: thoracic and lumbar spine normal to inspection Skin General skin exam: no rashes or lesions noted Neuro General: patient oriented x3 and no focal motor deficits Cranial nerves: Yes CN's II-XII intact bilaterally Extrem General: Yes normal to inspection, Yes no clubbing, cyanosis or edema and Yes no calf tenderness Psych Appearance: grossly normal and well kempt Speech and movement: Normal speech and movement present Assessment & Plan Assessment & Plan (1) COPD (chronic obstructive pulmonary disease): Comment: (COPD in long-time smoker ) PULM . FUNCTION TEST IN 2020 C/W mild to moderate obstructive disorder , with good response to bronchodilator therapy. ( ACOS ) HE HAS BEEN DOING DOING VERY WELL . INITIALLY HE FELT SOME DIFFERENCE THE WITH THE DULERA, IF IT WAS NOT EFFECTIVE SYMBICORT. BUT NOW HE HAS BECOME USE TO IT AND HE IS LESS SHORT OF BREATH LONG HE USES IT REGULARL Code(s): J44.9 - Chronic obstructive pulmonary disease, unspecified Category: Medical Plan: ADVISED TO CONTINUE USING DULERA( MOMETASONE ) 200-5 2 PUFFS B.I.D. AND USE ALBUTEROL HFA ONLY P.R.N. ALSO ADVISED TO DO DEEP BREATHING EXERCISES EVERY FEW HOURS DURING THE DAY. (2) History of smoking at least 1 pack per day for at least 30 years: Comment: . HISTORY OF SMOKING IN THE PAST QUIT in 2006 . Code(s): Z87.891 - Personal history of nicotine dependence Category: Social Hx Plan: NEVER GO BACK TO SMOKING (3) Interstitial lung disease: Comment: As per CT scan he does have evidence of fibrotic changes with peripheral reticulation in the lower lobes, c/w pulmonary fibrosis, mild . This is secondary to previous smoking and exposure to paint and sprays etc also. There have been no further change. Code(s): J84.9 - Interstitial pulmonary disease, unspecified Category: Medical Plan: Reassured that his minimal fibrotic changes are not symptomatic at this time Coding Level of Care Code Est Pt Level 3 (88500) Diagnoses COPD (chronic obstructive pulmonary disease) J44.9 History of smoking at least 1 pack per day for at least 30 years Z87.891 Interstitial lung disease J84.9
== END 2024-06-02 10:00 | disposition home or self-care (01) ==
PROVIDERS: PCP Internal Medicine; Visit Provider Internal Medicine
DX: J44.9 Chronic obstructive pulmonary disease, unspecified (principal); Z87.891 Personal history of nicotine dependence; J84.9 Interstitial pulmonary disease, unspecified
CPT/HCPCS: 99213

== ENCOUNTER → 2024-06-02 09:35 | Outpatient (BNVA) | payer MEDICARE, MEDICAID, SELFPAY | PROVIDERS: PCP Internal Medicine; Visit Provider Internal Medicine | DX: J44.9 Chronic obstructive pulmonary disease, unspecified (principal); J84.9 Interstitial pulmonary disease, unspecified; Z87.891 Personal history of nicotine dependence | CPT/HCPCS: 99212 ==

== ENCOUNTER 2024-12-04 09:31 | Outpatient (AMB) | payer MEDICARE, MEDICAID, SELFPAY ==
[2024-12-04 09:33] VITALS: BP 124/70; PULSE 75; O2SAT 97; BMI 25.1
--- NOTE | 2024-12-04 09:33 | MHC.OFFVIS ---
Vital Signs 12/04/24 09:33 Height 5 ft 10 in Weight 175 lb 4.28 oz BMI 25.1 BP 124/70 Blood Pressure Location Lt brachial Position Sitting Pulse 75 Pulse Source Pulse Oximeter Pulse Oximetry (%) 97 Oxygen Delivery Method Room Air Intake Visit Reasons: COPD Intake Note: pt is here for follow up and states does have some low oxygen levels, Apparatus Operator Required: No Allergies No Known Allergies Allergy (Verified 12/04/24 09:57) Medication List - Last Reconciled 12/04/24 by Leti Casas MD acetaminophen (Tylenol) 325 mg PO QID PRN albuterol sulfate 90 mcg/actuation 0 mcg inhalation aspirin (Ecotrin Low Strength) 81 mg PO DAILY inhalational spacing device (Aerochamber MV spacer) As directed mometasone-formoterol 200-5 mcg/actuation (Dulera) 2 puffs inhalation BID 30 days rosuvastatin 10 mg PO DAILY Do you need a note to return to daycare/school/sports/work: No HPI HPI COPD: Details: BLOSSOM IS 78 YEARS OLD 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 THEN HE HAS TO REST FOR 15 MINUTES TO CATCH HIS BREATH HE REMAINS RELATIVELY SEDENTARY AT HOME. HE HAS ONLY MILD INTERMITTENT COUGH. LUCKILY HE HAS HAD NO CHEST INFECTION. HE STOPPED USING DULERA BECAUSE EVEN AFTER USING IT HIS BREATHING DOES NOT FEEL ANY BETTER. NOW THAT HE IS NOT USING DULERA HE CLAIMS THAT HIS BREATHING IS ACTUALLY SOMEWHAT BETTER THAN BEFORE. HE DOES NOT HAVE ANY AUDIBLE WHEEZES. [facility] Medical History (Updated 12/04/24 @ 10:16 by Leti Casas MD) Restrictive lung disease Aortic stenosis Interstitial lung disease History of smoking at least 1 pack per day for at least 30 years History of retinal hemorrhage Personal history of nicotine dependence Prediabetes Hyperlipidemia Hypertension, essential CAD (coronary artery disease) COPD (chronic obstructive pulmonary disease) Surgical History History of heart artery stent (~2010) Social History Alcohol intake: current Alcohol intake frequency: does not drink Patient Tobacco Use Status: Former Tobacco user Tobacco use type: Cigarette Years Smoked: 45 (onset 17, 1.5ppd x 44yrs, 65pyh - quit 2006) 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 Review of Systems Const All systems reviewed & are unremarkable except as noted in HPI and below Eyes Reports no additional complaints ENT Reports no additional complaints Card Denies chest pain, Denies irregular heart rhythm and Denies leg edema Resp Reports as per HPI GI Reports no additional complaints Reports no additional complaints Musc Reports no additional complaints Skin/Breast Reports system reviewed and no additional complaints, except as documented Neuro Reports no additional complaints Psych Reports no additional complaints Physical Exam Vital Signs: Last Vital Signs Pulse 75 12/04/24 09:33 BP 124/70 12/04/24 09:33 Pulse Ox 97 12/04/24 09:33 Oxygen Delivery Method Room Air 12/04/24 09:33 BMI result Body Mass Index 25.1 Const General: healthy appearing, comfortable, no acute distress, alert and awake Orientation/consciousness: patient oriented x3 HEENT Head: Yes normal to inspection General nose exam: No nasal polyps present and No nasal discharge present Face and sinus: Yes sinuses nontender Mouth: oropharynx normal Throat: Yes posterior oropharynx normal Eyes General: appearance normal, both eyes and all related structures Neck Neck: Yes normal visual inspection, Yes no lymphadenopathy, Yes trachea midline and Yes no JVD Thyroid: Thyroid normal Chest Chest palpation & inspection: normal inspection of the chest, normal palpation of entire chest wall and no tenderness Resp Other: Percussion note is resonant on both sides. Breath sounds are distant, equal with prolonged expiratory phase. No wheezes or crepitations are heard. Cardio Palpation: normal PMI Rate: regular rate Rhythm: regular rhythm Heart sounds: no gallops and no murmurs Peripheral pulses: Peripheral pulses 2+ throughout GI Palpation (GI): Soft to palpation, nontender, No hepatosplenomegaly present and no masses Auscultation: normal bowel sounds Back/Spine/Pelvis Thoracic/Lumbar Spine: thoracic and lumbar spine normal to inspection Skin General skin exam: no rashes or lesions noted Neuro General: patient oriented x3 and no focal motor deficits Cranial nerves: Yes CN's II-XII intact bilaterally Extrem General: Yes normal to inspection, Yes no clubbing, cyanosis or edema and Yes no calf tenderness Psych Appearance: grossly normal and well kempt Speech and movement: Normal speech and movement present Office Procedures Spirometry Testing Spirometry Comments: Spirometry done in the office, Dr. Casas has the results results scanned to his chart. 10520- Spirometry Results Reviewed Results Reviewed: SPIROMETRY WALKED WITH HIM IN CORRIDOR FOR 4 MINUTES . HE WAS MODERATELY SOB . O2 SAT AT REST 96 % AFTER WALK 91 % Assessment & Plan Assessment & Plan (1) COPD (chronic obstructive pulmonary disease): Comment: (COPD in long-time smoker ) PULM . FUNCTION TEST IN 2020 C/W mild to moderate obstructive disorder , with good response to bronchodilator therapy. ( ACOS ) SPIROMETRY IN 2022 , SHOWED MAINLY RESTRICTIVE COMPONENT, MODERATELY SEVERE. SPIROMETRY TODAY IN THE OFFICE SHOWS THAT HIS RESTRICTIVE COMPONENT IS ACTUALLY LESS PROMINENT THAN BEFORE, BUT HE DOES HAVE MODERATE DEGREE OF OBSTRUCTIVE AIRWAY DISORDER, THIS IS BECAUSE HE IS NOT USING DULERA. Code(s): J44.9 - Chronic obstructive pulmonary disease, unspecified Category: Medical Plan: I ADVISED HIM TO RESTART USING DULERA 200-5 2 PUFFS B.I.D. USE IT REGULARLY. USED ALBUTEROL HFA 2 PUFFS Q 6 HOURS P.R.N., USE AERO CHAMBER( SPACER ) FOR THIS INHALER. ALSO ENCOURAGED TO DO DEEP BREATHING EXERCISES 2 OR 3 TIMES A DAY. (2) Interstitial lung disease: Comment: As per CT scan, LAST IN 2020 he did have evidence of fibrotic changes with peripheral reticulation in the lower lobes, c/w pulmonary fibrosis, mild . This is secondary to previous smoking and exposure to paint and sprays etc also. There have been no further change. Code(s): J84.9 - Interstitial pulmonary disease, unspecified Category: Medical Plan: EXPLAINED TO THE PATIENT ABOUT THIS FIBROTIC COMPONENT, WHICH CONTRIBUTES TO RESTRICTIVE LUNG DISORDER (3) Restrictive lung disease: Comment: HE HAS COMBINATION OF RESTRICTIVE AND OBSTRUCTIVE AIRWAY DISORDER. THE RESTRICTIVE DISORDER IS PROBABLY DUE TO ASSOCIATED PULMONARY FIBROSIS, AND CONTRIBUTES TO HIS DYSPNEA ON EXERTION Code(s): J98.4 - Other disorders of lung Category: Medical Plan: ADVISED TO CONTINUE DOING DEEP BREATHING EXERCISES (4) History of smoking at least 1 pack per day for at least 30 years: Comment: . HISTORY OF SMOKING IN THE PAST QUIT in 2006 . Code(s): Z87.891 - Personal history of nicotine dependence Category: Social Hx Plan: commended for not smoking . NO NEED FOR repeat CT SCANs Coding Level of Care Code Est Pt Level 3 (67956) Diagnoses COPD (chronic obstructive pulmonary disease) J44.9 Interstitial lung disease J84.9 Restrictive lung disease J98.4 History of smoking at least 1 pack per day for at least 30 years Z87.891 CPT Codes Spirometry - CPT: 78301- Spirometry ([id number])
--- OUTSIDE RECORDS SUMMARY | 2024-12-04 10:38 | XMS_ITS | Continuity of Care Document ---
Author Organization [facility] ter Address [address] [place] [id number]- Care Team Providers Care Commuter Pilot Name Role Phone Benny Michelle MD Primary Care Physician [phone] [id number] Date(s): 11/05/24 - 11/06/[address] [address]- Discharge Disposition: A-D/C Walkout Attending Physician: Not on Staff, Attending MD Admitting Physician: Not on Staff, Admitting MD Referring Physician: Not on Staff, Referring MD Encounter Type: Disch ES Allergies, Adverse Reactions, Alerts Substance Criticality Severity Reaction Reaction Severity Status atorvastatin muscle ache Activ e Bee Stings passed out in ER, BP in 40s itching, edema Active Immunizations Given and Recorded Vaccine Date Status Refusal Reason pneumococcal 13-valent vaccine 09/11/16 Given influenza virus vaccine, inactivated 09/11/16 Give n tetanus/diphtheria/pertussis, acel(Tdap) 05/12/16 Given Medications aspirin 81 mg oral tablet, chewable By Mouth, Daily, 0 Refills, Maintenance, 09/20/12 2:11:14 PM EST, Chew Tablet Start Date: 09/20/12 Status: Ordered Repeat number: 1 rosuvastatin 20 mg oral tablet 0.5 tablet = 10 mg, By Mouth, Daily, pt takes he does not tolerate cholesterol pills very well. so only takes 3times week on MWF, # 60 tablet, 0 Refills, Maintenance, 09/05/23 4:55:00 AM EDT, Tablet,Partial fill upon patient request if the prescription is for a schedule II opioid drug. Start Date: 09/05/23 Status: Ordered Quantity: 60.0 Unit: tablet Repeat number: 1 Ventolin HFA 108 mcg/inh inhalation aerosol with adapter 1 puffs, Inhalation, 4 times a day, PRN for wheezing, # 18 Gm, 0 Refills, Maintenance, 09/05/23 4:54:00 AM EDT, Aerosol, Partial fill upon patient request if the prescription is for a schedule II opioid drug. Start Date: 09/05/23 Status: Ordered Quantity: 18.0 Unit: g Repeat number: 1 Problem List Condition Confirmation Course Effective Dates Status H ealth Status Informant h/o Chronic depression Confirmed 03/23/06 Active Chronic low back pain Confirmed 03/23/06 Active COPD Confirmed Active CAD in osage artery Confirmed Active Erosive esophagitis Confirmed 03/23/06 Active Hyperlipidemia Confirmed 03/23/06 Active HTN (hypertension) Confirmed Active Prediabetes Confirmed Active Steatosis of liver Confirmed 03/23/06 Active S/P coronary artery stent placement Confirmed Active Results Radiology Reports * Exam Date Time Procedure Performing Provider Status 11/05/24 7:13 PM Chest 2 Views Frontal and Lat Harriso n , Haylie; Auth (Verified) Notes: (Chest 2 Views Frontal and Lat) Reason For Exam: Chest Pain;Other: RESULT: Chest 2 Views Frontal and Lat Chest 2 Views Frontal and Lat Hx of Present Illness: pt presents w [facility];reports worsening SOB, dizziness w occasional n v 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 pmhx htn,copd asthma, cataracts.denies chest pain; Reason: Other:; Chest Pain; Clinical Question(s): O ther: COMPARISON: Priors, most recent dated 02/27/2024 FINDINGS: LINES AND TUBES: None. LUNGS AND PLEURA: Subtle hazy opacity in bilateral lung bases, probably due to atelectasis or mild interstitial pulmonary edema. No focal consolidation. Mild linear opacity in the right midlung probably due to linear atelectasis. No pleural effusion. No pneumothorax. HEART, MEDIASTINUM AND JESSICA: Heart is normal in size. Post TAVR Normal mediastinal and hilar contour. BONES AND SOFT TISSUES: No acute abnormality. IMPRESSION: Subtle hazy opacities in bilateral lung bases, probably due to atelectasis or mild pulmonary edema.Mild linear atelectasis in the right midlung. WSN: [id number] Ordering Physician: Gaby Martinez Dictated By: Qi Hawkins MD Dictated Date/Time: 11/05/24 7:19 pm Reviewed By: Qi Hawkins MD Signed By: Qi Hawkins MD Signed Date/Time: 11/05/24 7:19 pm Transcribed By: ROMINA Transcribed Date/Time: 11/05/24 7:17 pm Vital Signs Most recent to oldest [Reference Range]: 1 2 Height 178 cm (11/05/24 6:39 PM) 178 cm (11/05/24 5:37 PM) Weight 77 kg (11/05/24 6:39 PM) 77 kg (11/05/24 5:37 PM) Oxygen Saturation [94-100 %] 99 % (11/05/24 5:37 PM) 98 % (11/05/24 5:32 PM) Pulse Rate [55-90 bpm] 91 bpm *H* (11/05/24 5:37 PM) 105 bpm *H* (11/05/24 5:32 PM) Body Mass Index [18.5-24.99 kg/m2] 24.3 kg/m2 (11/05/24 5:37 PM) Blood Pressure [90-138/55-84 mm Hg] 159/ 107mm Hg *H* (11/05/24 5:37 PM) Respiratory Rate [16-30 br/min] 18 br/mi n (11/05/24 5:37 PM) Temperature [96.8-100.4 DegF] 98.6 DegF (11/05/24 5:37 PM) Mode of Delivery (Oxygen) Room air (11/05/24 5:37 PM) Room air (11/05/24 5:32 PM) Blood pressure sites Arm, right (11/05/24 5:37 PM) Temperature Route Oral (11/05/24 5:37 PM) Dry Weight 77 kg (11/05/24 6:39 PM) 77 kg (11/05/24 5:37 PM) Weight Obtained Via Patient/family state d (11/05/24 5:37 PM) Dry Weight Obtained Via Patient/family s tated (11/05/24 5:37 PM) Social History Social History Type Response Smoking Status Former smoker; Tobac co user in household: No entered on: 04/13/16 Sex Sex Representation Male (finding) EKG study * Event Display: EKG Authored Date: * Event Display: ECG 12-Lead Authored Date: Please click on pdf link to open report * Event Display: ECG 12-Lead Authored Date: Ventricular Rate: 95 BPM Atrial Rate: 95 BPM P-R Interval: 128 ms QRS Duration: 74 ms Q-T Interval: 338 ms QTC Calculation(Bazett): 424 ms P [place]: 49 degrees R [place]: -4 degrees T [place]: 60 degrees Suspect electrode reversal: V2 V3 ; interpretation assumes no reversal Sinus rhythm with frequent Premature ventricular complexes Inferior infarct , age undetermined Abnormal ECG When compared with ECG of 28-Mar-2024 08:58, Premature ventricular complexes are now Present Confirmed by TEDDY JOHNSON ([id number]) on 11/06/2024 10:32:28 AM [place]: TEDDY JOHNSON Patient Care team information Care Team Personnel Name: Benny Michelle MD Position: [facility] Outreach Member Role: PCP Address: [address] [place] [address] [place] [address]- Telecom: Name: Aleksandra Solitario RN Position: S RN Member Role: Primary Care Nurse Name: Tammie Garrett RN Position: S RN Member Role: Primary Care Nurse Name: Reena Galeano RN Position: [facility] RN Member Role: Primary Care Nurse Name: Ganesh Tavarez MD Position: [facility] Renal MD Member Role: Lifetime Consulting Physician Address: [address] [place] [address] [address] [facility] [place] [address]- Telecom: Care Team Related Persons Name: JAVON LAW Name: ROSI LAW Insurance Providers Guarantor name: BLOSSOM LAW Health Plan Information #: 1 Payer: [employer] Member Number: [id number] Policy Number: NA Group Number: NA Health Plan Information #: 2 Payer: [employer] Member Number: [id number] Policy Number: NA Group Number: NA
--- OUTSIDE RECORDS SUMMARY | 2024-12-04 10:38 | XMS_ITS | Continuity of Care Document ---
Author Organization [facility] Address [address] [place] [id number]- Care Team Providers Care Multimedia Services Coordinator Name Role Phone Benny Michelle MD Primary Care Physician [phone] Encounter [facility] Date(s): 10/08/24 - 11/07/24 [facility] [address] [place] [id number] Attending Physician: Dusty Morales Admitting Physician: Dusty Morales Referring Physician: AdmtrDusty Encounter Type: Triage Allergies, Adverse Reactions, Alerts Substance Criticality Severity [...] 03/23/06 Active COPD Confirmed Active CAD in [place] artery Confirmed Active Erosive esophagitis Confirmed 03/23/06 Active Hyperlipidemia Confirmed 03/23/06 Active HTN (hypertension) Confirmed Active Prediabetes Confirmed Active Steatosis of liver Confirmed 03/23/06 Active S/P coronary artery stent placement Confirmed Active Social History Social History Type Response Smoking Status Former smoker; Tobac co user in household: No entered on: 04/13/16 Sex Sex Representation Male (finding) Cardiology * Event Display: Non Cardiovascular Results Authored Date: Laboratory * Event Display: Non Lab Results Authored Date: Patient Care team information Care Team Personnel Name: Benny Michelle MD Position: [facility] Outreach Member Role: PCP Address: [address] [place] [address] [place] [address]- Telecom: Name: Aleksandra Solitario RN Position: [facility] RN Member Role: Primary Care Nurse Name: Tammie Garrett RN Position: [facility] RN Member Role: Primary Care Nurse Name: Reena Galeano RN Position: [facility] RN Member Role: Primary Care Nurse Name: Ganesh Tavarez MD Position: [facility] Renal MD Member Role: Lifetime Consulting Physician Address: [address] [place] [address] [address] [facility] [place] [address]- Telecom: Care Team Related Persons Name: JAVON LAW Name: ROSI LAW Insurance Providers Guarantor name: tok tok tok [facility] Information #: 1 Payer: [employer] Member Number: NA Policy Number: NA Group Number: [id number]
== END 2024-12-04 10:13 | disposition home or self-care (01) ==
PROVIDERS: PCP Internal Medicine; Visit Provider Internal Medicine
DX: J44.9 Chronic obstructive pulmonary disease, unspecified (principal); J84.9 Interstitial pulmonary disease, unspecified; J98.4 Other disorders of lung; Z87.891 Personal history of nicotine dependence
CPT/HCPCS: 94010; 99213

== ENCOUNTER → 2024-12-04 09:31 | Outpatient (BNVA) | payer MEDICARE, MEDICAID, SELFPAY | PROVIDERS: PCP Internal Medicine; Visit Provider Internal Medicine | DX: J44.9 Chronic obstructive pulmonary disease, unspecified (principal); J84.9 Interstitial pulmonary disease, unspecified; J98.4 Other disorders of lung; Z87.891 Personal history of nicotine dependence | CPT/HCPCS: 94010; 99212 ==

== ENCOUNTER 2025-02-02 10:57 | Outpatient (AMB) | payer MEDICARE, MEDICAID, SELFPAY ==
[2025-02-02 11:08] VITALS: BP 152/90; PULSE 100; RESP 16; TEMP 36.4; O2SAT 95; BMI 28.7
--- NOTE | 2025-02-02 11:08 | MHC.PC.OV ---
Vital Signs 02/02/25 11:08 Height 5 ft 10 in Weight 200 lb BMI 28.7 BP 152/90 H Respiration 16 Pulse 100 Pulse Source Pulse Oximeter Temp 97.6 F Temp Source Temporal Artery Scan Pulse Oximetry (%) 95 Oxygen Delivery Method Room Air Intake Visit Reasons: discharged from [facility] Medical Assistant Ob Gyn Required: No Allergies No Known Allergies Allergy (Verified 02/02/25 11:08) Tobacco use date assessed: 02/02/25 Fall risk assessment: No Falls in past year Last assessed Fall Risk: 02/02/25 Dental Screening Dental Screen Date: 02/02/25 Did you have a dental visit in the last 12 months?: No Did you have a dental problem in the last 6 months where you did not have access to dental care?: No Was dental information given to patient?: No (pt has dentures) [facility] Medical History (Updated 02/02/25 @ 11:57 by Lisandro Parker MD) Cerebrovascular accident Restrictive lung disease Aortic stenosis Interstitial lung disease History of smoking at least 1 pack per day for at least 30 years History of retinal hemorrhage Personal history of nicotine dependence Prediabetes Hyperlipidemia Hypertension, essential CAD (coronary artery disease) COPD (chronic obstructive pulmonary disease) Surgical History History of heart artery stent (~2010) Family History (Updated 02/02/25 @ 11:09 by ROBI Domingo) Mother No problems noted. Father No problems noted. 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 1. Little interest or pleasure in doing things: not at all 2. Feeling down, depressed, or hopeless: not at all 3. Trouble falling or staying asleep, or sleeping too much: not at all 4. Feeling tired or having little energy: not at all 5. Poor appetite or overeating: not at all 6. Feeling bad about yourself - or that you are a failure or have let yourself or your family down: not at all 7. Trouble concentrating on things, such as reading the newspaper or watching television: not at all 8. Moving or speaking so slowly that other people could have noticed. Or the opposite - being so fidgety or restless that you have been moving around a lot more than usual: not at all 9. Thoughts that you would be better off or of hurting yourself in some way: not at all Total score: 0 Source: Developed by Drs. Severiano Alvarado, Savannah Rose, Chucky Schuler and colleagues, with an educational galo from [employer]. Thrive Questionnaire Date Thrive assessed: 02/02/25 I am a: Patient What is your living situation today?: I have a steady place to live Within the past 12 months, did the food you bought not last and you didn't have the money to get more?: Never true Within the past 12 months, did you worry whether your food would run out before you got money to buy more?: Never true Do you have trouble paying for medicines?: No Do you have trouble getting transportation to medical appointments?: No Do you have trouble paying your heating and electricity bill?: No Do you have trouble taking care of your child, family member or friend?: No Do you have trouble with day-to-day activities such as bathing, preparing meals, shopping, managing finances, etc.?: No Are you currently unemployed and looking for a job?: No Are you interested in more education?: No Please select the resources that you would like help with: None THRIVE Score: 0 AUDIT C Alcohol Use Questionnaire (AUDIT-C) 1. How often do you have a drink containing alcohol?: Never 3. How often do you have six or more drinks on one occasion?: Never Total Score: 0 STEFFEN-7 AMB Questionnaire STEFFEN-7 Date STEFFEN - 7 assessed: 02/02/25 Feeling nervous, anxious, or on edge: 0 = Not at all Not being able to stop or control worryin = Not at all Worrying too much about different things: 0 = Not at all Trouble relaxin = Not at all Being so restless that it is hard to sit still: 0 = Not at all Becoming easily annoyed or irritable: 0 = Not at all Feeling afraid as if something awful might happen: 0 = Not at all Total STEFFEN-7 score (0-4 normal; 5-9 mild; 10-14 moderate; 15-21 severe): 0 Source: Developed by Drs. Severiano Alvarado, Savannah Rose, Chucky Schuler and colleagues, with an educational galo from [employer]. Physical exam (Primary Care) Vital Signs: Last Vital Signs Temp 97.6 F 02/02/25 11:08 Pulse 100 02/02/25 11:08 Resp 16 02/02/25 11:08 BP 152/90 H 02/02/25 11:08 Pulse Ox 95 02/02/25 11:08 Oxygen Delivery Method Room Air 02/02/25 11:08 BMI result Body Mass Index 28.7 Tobacco/Smoking Status: Tobacco use Status Tobacco use date assessed 02/02/25 02/02/25 11:09 Patient Tobacco Use Status Former Tobacco user 02/02/25 11:09 Tobacco use type Cigarette 02/02/25 11:09 PHQ-9: PHQ-9 Score PHQ-9: Total score 0 02/02/25 11:31 Thrive Assessment: Date of Thrive Assessment Date Thrive assessed 02/02/25 02/02/25 11:09 Coding Level of Care Code New Pt Level 4 (85464) Complex EM visit Add On G2211 Diagnoses Hypertension, essential I10 Cerebrovascular accident I63.9 Assessment & Plan Assessment & Plan (1) Hypertension, essential: Code(s): I10 - Essential (primary) hypertension Category: Medical Plan: BP is stable. Pateint was encouraged to start a antihypertensive. He has declined. I suggested he talk to speak to his central stores attendant to get a second opinion on this matter. His has agreed to do so. (2) Cerebrovascular accident: Code(s): I63.9 - Cerebral infarction, unspecified Category: Medical Plan: Will get his medical records from [facility] History of Present Illness The patient is a 79-year-old male presenting with concerns related to a recent ischemic stroke. Approximately two weeks ago, the patient experienced symptoms of a stroke, including arm movement issues, facial drooping, and incomprehensible speech. He was immediately admitted to [facility] where thrombolytic therapy facilitated a complete recovery within [address] scan confirmed the presence of a cerebrovascular event with one large affected area and several smaller affected regions. The patient had a five-day hospital stay. Following the stroke, his medication regimen was adjusted to include Plavix and rosuvastatin, with omeprazole continued. There has been no introduction of blood pressure medication despite experiencing transient elevations. Historically, the patient had a TAVR performed approximately 1.5 years ago. His primary concern now involves maintaining stable blood pressure and reducing potential stroke recurrence. Current medications have been effective, and no ongoing issues related to the previous TAVR have been reported. Social History - The patient resides at home, and his spouse is actively involved in his care. - No tobacco use mentioned. No specific alcohol or drug use details provided. - No employment discussions were noted. Review of Systems - Cardiovascular: Reports typical systolic readings around 130. - Neurological: Denies any new symptoms post-stroke beyond mentioned episode. Physical Exam General: Appearance normal, both eyes and all related structures Nutritional Appearance: Well nourished Orientation/consciousness: Patient oriented x3 Limitations: No limitations Head: Normal to inspection Neck: Normal visual inspection Chest: Normal palpation of entire chest wall Respiratory: Normal respiratory effort Neurology: Patient oriented x3, history of cerebral stroke with full recovery within 24 hours Results - Tests and diagnostics: CT scan indicated one large affected brain region and several smaller regions. Plan The patient is on Plavix and rosuvastatin for secondary stroke prevention, and omeprazole for gastric protection. Current medications will be renewed. A further review by the central stores attendant was recommended for possible blood pressure medicine due to stroke history, although current levels are predominantly stable. Collaborative care alignment with his central stores attendant for any further adjustments or intervention is encouraged. Regular monitoring of blood pressure and reporting any significant deviations or symptoms was emphasized. Patient was informed and verbally consented to the use of an ambient scribe for clinic note documentation during this visit. Discussion Notes I discussed with the patient and his the ongoing management of his medication regimen, reinforcing the use of Plavix and rosuvastatin for stroke secondary prevention. I emphasized the importance of consulting his central stores attendant for a second opinion regarding blood pressure management and potential antihypertensive therapy even if past levels were within normal range, as post-stroke patients may benefit from additional cardiovascular protective measures. The risks of potential stroke recurrence, especially with untreated hypertension, were highlighted. Follow-up interactions with his central stores attendant and continued monitoring of his blood pressure were advised. He is instructed to report any changes in symptoms or persistent elevations in blood pressure. Patient Instructions - Continue taking Plavix, rosuvastatin, and omeprazole as prescribed. - Renew prescriptions for current medications. - Monitor blood pressure regularly and note if consistently elevated. - Follow up with the central stores attendant to discuss second opinions on potential blood pressure medications. - Report any new symptoms or concerns immediately. - Be alert to changes in your health, particularly those that could indicate stroke recurrence. Medications: New omeprazole 20 mg PO DAILY 90 caps 0RF clopidogrel 75 mg PO DAILY 90 tabs 1RF Refilled rosuvastatin please call to schedule cardiology appt 10 mg PO DAILY 90 tabs 0RF I35.0 - Nonrheumatic aortic (valve) stenosis
== END 2025-02-02 11:58 | disposition home or self-care (01) ==
LOC: HO.HMCHD 10:58
PROVIDERS: PCP Internal Medicine; Visit Provider Internal Medicine
DX: I10 Essential (primary) hypertension (principal); I63.9 Cerebral infarction, unspecified

== ENCOUNTER → 2025-02-02 10:57 | Outpatient (BNVA) | payer MEDICARE, MEDICAID, SELFPAY | PROVIDERS: PCP Internal Medicine; Visit Provider Internal Medicine | DX: I10 Essential (primary) hypertension (principal); I63.9 Cerebral infarction, unspecified | CPT/HCPCS: 99202 ==

== ENCOUNTER 2025-05-04 09:47 | Outpatient (AMB) | payer MEDICARE, MEDICAID, SELFPAY ==
--- NOTE | 2025-05-04 09:41 | A.OFFPC_ITS ---
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: No Accompanied by: Self / Same As Patient Allergies No Known Allergies Allergy (Verified 05/04/25 09:42) Tobacco use date assessed: 05/04/25 Fall risk assessment: No Falls in past year Last assessed Fall Risk: 05/04/25 Dental Screening Dental Screen Date: 05/04/25 Did you have a dental visit in the last 12 months?: Yes Did you have a dental problem in the last 6 months where you did not have access to dental care?: No PFSH Medical History Cerebrovascular accident Restrictive lung disease Aortic stenosis Interstitial lung disease History of smoking at least 1 pack per day for at least 30 years History of retinal hemorrhage Personal history of nicotine dependence Prediabetes Hyperlipidemia Hypertension, essential CAD (coronary artery disease) COPD (chronic obstructive pulmonary disease) Surgical History History of heart artery stent (~2010) Family History Mother No problems noted. Father No problems noted. 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 1. Little interest or pleasure in doing things: not at all 2. Feeling down, depressed, or hopeless: not at all 3. Trouble falling or staying asleep, or sleeping too much: not at all 4. Feeling tired or having little energy: not at all 5. Poor appetite or overeating: not at all 6. Feeling bad about yourself - or that you are a failure or have let yourself or your family down: not at all 7. Trouble concentrating on things, such as reading the newspaper or watching television: not at all 8. Moving or speaking so slowly that other people could have noticed. Or the opposite - being so fidgety or restless that you have been moving around a lot more than usual: not at all 9. Thoughts that you would be better off or of hurting yourself in some way: not at all Total score: 0 Source: Developed by Drs. Severiano Alvarado, Savannah Rose, Chucky Schuler and colleagues, with an educational galo from [employer]. Thrive Questionnaire Date Thrive assessed: 05/04/25 I am a: Patient Within the past 12 months, did the food you bought not last and you didn't have the money to get more?: Never true Within the past 12 months, did you worry whether your food would run out before you got money to buy more?: Never true Do you have trouble paying for medicines?: No Do you have trouble getting transportation to medical appointments?: No Do you have trouble paying your heating and electricity bill?: No Do you have trouble taking care of your child, family member or friend?: No Do you have trouble with day-to-day activities such as bathing, preparing meals, shopping, managing finances, etc.?: No Are you currently unemployed and looking for a job?: No Are you interested in more education?: No THRIVE Score: 0 AUDIT C Alcohol Use Questionnaire (AUDIT-C) 1. How often do you have a drink containing alcohol?: Never 3. How often do you have six or more drinks on one occasion?: Never Total Score: 0 STEFFEN-7 AMB Questionnaire STEFFEN-7 Date STEFFEN - 7 assessed: 05/04/25 Feeling nervous, anxious, or on edge: 0 = Not at all Not being able to stop or control worryin = Not at all Worrying too much about different things: 0 = Not at all Trouble relaxin = Not at all Being so restless that it is hard to sit still: 0 = Not at all Becoming easily annoyed or irritable: 0 = Not at all Feeling afraid as if something awful might happen: 0 = Not at all Total STEFFEN-7 score (0-4 normal; 5-9 mild; 10-14 moderate; 15-21 severe): 0 Source: Developed by Drs. Severiano Alvarado, Savannah Rose, Chucky Schuler and colleagues, with an educational galo from [employer]. Physical exam (Primary Care) Vital Signs: Last Vital Signs Temp 97 F 05/04/25 09:42 Pulse 62 05/04/25 09:42 BP 138/76 05/04/25 09:42 Pulse Ox 98 05/04/25 09:42 Oxygen Delivery Method Room Air 05/04/25 09:42 BMI result Body Mass Index 24.7 Tobacco/Smoking Status: Tobacco use Status Tobacco use date assessed 05/04/25 05/04/25 09:43 Patient Tobacco Use Status Former Tobacco user 05/04/25 09:43 Tobacco use type Cigarette 05/04/25 09:43 e-Cigarette/Vaping Use Former Use 05/04/25 09:43 PHQ-9: PHQ-9 Score PHQ-9: Total score 0 05/04/25 09:56 Thrive Assessment: Date of Thrive Assessment Date Thrive assessed 05/04/25 05/04/25 09:43 Coding Level of Care Code Est Pt Level 4 (63736) Complex EM visit Add On G2211 Diagnoses Cerebrovascular accident I63.9 Assessment & Plan Assessment & Plan (1) Cerebrovascular accident: Code(s): I63.9 - Cerebral infarction, unspecified Category: Medical Plan: Since last discharge from the hospital, patient reports he has had spikes of blood pressure and blurry vision. He has stopped taking the Plavix and the Dulera which he thought was making the symptoms worse. He has a follow-up appointment with the director of kids regarding the Dulera. A call has been placed to his neurologist to discuss if dual antiplatelet agents are necessary for this patient. Plan History of Present Illness - The patient is a 79-year-old male presenting with follow-up for stroke management and medication review. - The patient had a stroke in December and was placed on Plavix and a statin. - He experienced side effects from Plavix, including headaches, blurry vision, and urinary retention, leading to its discontinuation. - The patient also reported a stroke in the eye, with high blood pressure noted as a contributing factor. - He has a history of asthma, exacerbated by the medication Dulera, causing frequent asthma attacks. - The patient has been hospitalized multiple times since January, with one readmission and several scans performed. - Blood pressure has been variable, with recent readings of 120/80 mmHg and 138/70 mmHg. Social History Review of Systems - Neurological: Reports headaches, dizziness, and blurry vision. - Respiratory: Reports frequent asthma attacks. - Genitourinary: Reports urinary retention. Physical Exam General: Cooperative and healthy appearing Nutritional Appearance: Well nourished Orientation/consciousness: Patient oriented x3 Limitations: No limitations Head: Normal to inspection General: Appearance normal, both eyes and all related structures Neck: Normal visual inspection Chest: Normal palpation of entire chest wall Respiratory: Patient reports having asthma attacks 4 to 5 times a day when taking Dulera, but breathing normal after discontinuation. ormal respiratory effort Neurology: Patient oriented x3, history of stroke, including a stroke in the eye. Reports dizziness and fluctuating blood pressure. Results - Imaging: Full body scan performed during hospitalization. Plan 1. Stroke - Discussed the importance of dual antiplatelet therapy with aspirin and Plavix. - Consideration of alternative medications due to side effects experienced with Plavix. - Emphasized the risk of recurrent stroke and the need for medication adherence. 2. Hypertension - Blood pressure monitoring advised due to variability in readings. - Discussed potential impact of medications on blood pressure control. 3. Asthma - Advised discontinuation of Dulera due to exacerbation of asthma symptoms. - Recommended pulmonary function test to assess current respiratory status. 4. Eye Stroke - Discussed the occurrence of a stroke in the eye and its implications. - Recommended follow-up with ophthalmology for ongoing management. Discussion Notes I discussed with the patient the importance of managing his stroke risk through dual antiplatelet therapy, emphasizing the role of aspirin and Plavix. We reviewed the side effects he experienced and considered alternative medications. I highlighted the risk of recurrent stroke and the necessity of medication adhe rence. We also discussed the variability in his blood pressure readings and the potential impact of medications on his blood pressure control. For his asthma, I advised discontinuation of Dulera due to exacerbation of symptoms and recommended a pulmonary function test. We also addressed the occurrence of a stroke in his eye and the need for follow-up with ophthalmology. Patient Instructions - Continue taking aspirin daily as prescribed. - Monitor blood pressure regularly and report any significant changes. - Discontinue Dulera and use albuterol as needed for asthma symptoms. - Schedule a pulmonary function test as advised. - Follow up with ophthalmology for eye stroke management. ?
[2025-05-04 09:42] VITALS: BP 138/76; PULSE 62; TEMP 36.1; O2SAT 98; BMI 24.7
--- OUTSIDE RECORDS SUMMARY | 2025-05-04 10:38 | XMS_ITS | Clinical Summary ---
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 Name Role Phone Unavailable Primary Care Provider Unavailabl e Social History Tobacco Use Types Packs/Day Years Used Date Smoking Tobacco: Never Assessed Sex and Gender Information Value Date Recorded Sex Assigned at Not on file Legal Sex Male 5:22 PM EST Gender Identity Not on file Sexual Orientation Not on file Plan of Treatment Health Maintenance Due Date Last Done Comments Hepatitis B Vaccine (1 of 3 - Risk 3-dose series) 11/14 Pneumococcal Vaccine: 50+ Ye ars (2 of 2 - PPSV23, PCV20, or PCV21) 11/06/2016 09/11/2016 Influenza Vaccine (Season Ended) 2025 07/14/20 20 Pneumococcal Vaccine: Peds ( 0 to 5 Years) and At-Risk Patients (6 to 49 Years) Discontinued 09/11/2016 [place]
== END 2025-05-04 10:23 | disposition home or self-care (01) ==
LOC: HO.HMCHD 09:47
PROVIDERS: PCP Internal Medicine; Visit Provider Internal Medicine
DX: I63.9 Cerebral infarction, unspecified (principal)

== ENCOUNTER → 2025-05-04 09:47 | Outpatient (BNVA) | payer MEDICARE, MEDICAID, SELFPAY | PROVIDERS: PCP Internal Medicine; Visit Provider Internal Medicine | DX: I63.9 Cerebral infarction, unspecified (principal) | CPT/HCPCS: 99212 ==

== ENCOUNTER 2025-11-02 08:53 | Outpatient (AMB) | payer MEDICARE, MEDICAID, SELFPAY ==
--- NOTE | 2025-11-02 09:00 | A.OFFPC_ITS ---
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 Officer Required: No Accompanied by: Self / Same As Patient Allergies No Known Allergies Allergy (Verified 11/02/25 09:02) Medication List - Last Reconciled 11/02/25 by Travis Marvin MD acetaminophen (Tylenol) 325 mg PO QID PRN albuterol sulfate 90 mcg/actuation 0 mcg inhalation omeprazole 20 mg PO DAILY PRN rosuvastatin 10 mg PO 3XW Tobacco use date assessed: 02/02/25 Fall risk assessment: 2 + Falls in past year Last assessed Fall Risk: 11/02/25 Dental Screening Dental Screen Date: 02/02/25 HPI HPI Comments History of Present Illness Details History of Present Illness The patient is a 79 year old male presenting with dizziness. He reports he has been dizzy since a stroke in December. He also has issues with his eyes and experiences photosensitivity with LED lights after having cataract surgery. He is on lisinopril 10 mg for hypertension. He notes his blood pressure will increase with activity, such as walking, and then drop aggressively, leading to dizziness and inability to walk. His normal blood pressure is around 145-150 mmHg. The patient's medical history is significant for emphysema, heart failure, and aortic valve disease. He underwent a transcatheter aortic valve replacement (TAVR) over two years ago and feels his symptoms have worsened since the procedure. He reports no subsequent medication changes, cardiac rehab, or regular cardiology appointments after the TAVR, despite attempts to follow up with Dr. Huerta's practice. He previously saw a rock crushing machine operator at [facility] who told him he had six months to live, which led him to cease care at that facility. Additional history includes GERD treated with as-needed omeprazole, hyperlipidemia managed with rosuvastatin, and constipation with a hemorrhoid managed with as-needed stool softeners. He reports having a heart murmur in the past. He denies a history of diabetes. Medical History: - History of Cerebrovascular Accident (F ebruary) - Emphysema - Heart Failure - Aortic Valve Disease - Essential Hypertension - Hyperlipidemia - Gastroesophageal Reflux Disease (GERD) - Constipation - Hemorrhoids - History of cataracts - History of heart murmur Surgical History: - Transcatheter Aortic Valve Replacement (TAVR) (>2 years ago) - Cataract surgery - Back operation - Cardiac catheterization Medications: - Lisinopril 10 mg for hypertension - Rosuvastatin for hyperlipidemia - Albuterol as needed for emphysema - Omeprazole as needed for GERD - Stool softener (unspecified) as needed for constipation Family History: - Daughter has Postural Orthostatic Tach ycardia Syndrome (POTS). Diagnostic Results: - Vitals: Blood pressure is 130/64 mmHg. - Labs: Last blood work was in November 13. Social History - Functional Status: Limited mobility du e to dizziness and dyspnea on exertion. - Substance Use: Denies alcohol use. Health Maintenance - A follow-up visit is scheduled in one month for an annual physical. - Comprehensive lab work will be done e week prior to the next visit, to include CBC, electrolytes, glucose, and screenings for hepatitis, HIV, and syphilis, as well as a urinalysis. - Paperwork for a permanent handicap miguel card will be processed to address mobility limitations. Patient was informed and verbally consented to the use of an ambient scribe for clinic note documentation during this visit. Vital signs reviewed. Comprehensive history, review of systems, and physical exam completed. Medications, allergies, and problem list reviewed and updated. Counseling provided on nutrition, regular exercise, sleep hygiene, and moderation of alcohol use. Discussed age-appropriate screenings (mammogram, colonoscopy, Pap, bone density) and immunizations (flu, COVID, shingles, Tdap). Screened for depression, fall risk, and home safety; no current concerns. Discussed stress management, dental and vision care, and importance of ongoing preventive follow-up. Routine labs ordered for metabolic and lipid screening. Patient educated on healthy lifestyle and agrees with the plan. [facility] Medical History (Updated 11/02/25 @ 09:30 by Travis Marvin MD) Constipation GERD without esophagitis Dizziness Cerebrovascular accident Restrictive lung disease Aortic stenosis Interstitial lung disease History of smoking at least 1 pack per day for at least 30 years History of retinal hemorrhage Personal history of nicotine dependence Prediabetes Hyperlipidemia Hypertension, essential CAD (coronary artery disease) COPD (chronic obstructive pulmonary disease) Surgical History History of heart artery stent (~2010) Family History Mother No problems noted. Father No problems noted. 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 How often do you have a drink containing alcohol?: Never 3. How often do you have six or more drinks on one occasion?: Never Total Score: 0 STEFFEN-7 AMB Questionnaire STEFFEN-7 Date STEFFEN - 7 assessed: 02/02/25 Source: Developed by Drs. Severiano Alvarado, Savannah Rose, Chucky Schuler and colleagues, with an educational galo from [email or web address]. Review of Systems Narrative Review of Systems - Neurological: Reports dizziness, particularly with activity. - HEENT: Reports poor vision and photosensitivity post-cataract surgery. - Cardiovascular: Reports orthostatic symptoms and awareness of heartbeat when lying on his ear. - Respiratory: Reports dyspnea with activity. - Gastrointestinal: Reports constipation. - Genitourinary: Reports malodorous urine. - Musculoskeletal: Reports difficulty walking. All systems reviewed & are unremarkable except as reviewed in HPI and above Physical exam (Primary Care) Vital Signs: Last Vital Signs Temp 96.6 F L 11/02/25 09:01 Pulse 73 11/02/25 09:01 Resp 16 11/02/25 09:01 BP 130/64 11/02/25 09:01 Pulse Ox 94 11/02/25 09:01 Oxygen Delivery Method Room Air 11/02/25 09:01 BMI result Body Mass Index 23.9 Tobacco/Smoking Status: Tobacco use Status Tobacco use date assessed 02/02/25 11/02/25 09:05 Patient Tobacco Use Status Former Tobacco user 11/02/25 09:05 Tobacco use type Cigarette 11/02/25 09:05 e-Cigarette/Vaping Use Former Use 11/02/25 09:05 Thrive Assessment: Date of Thrive Assessment Date Thrive assessed 02/02/25 11/02/25 09:05 Narrative Physical Exam General: +Alert and oriented, Well nourished, No acute distress. Eye: Pupils are equal, round and reactive to light, Intact accommodation, Extraocular movements are intact, Normal conjunctiva, Vision unchanged, Cataracts present. HENT: Normocephalic, Atraumatic, Tympanic membranes are clear, Normal hearing, Oral mucosa is moist, No pharyngeal erythema, Ear canals patent. Respiratory: Lungs CTA bilaterally, No wheeze, Respirations are non-labored, History of emphysema. Cardiovascular: Irregular rate, Irregular rhythm, S1 auscultated, S2 auscultated, No murmur, Good pulses equal in all extremities, Normal peripheral perfusion, No edema, History of heart failure, Aortic valve replacement (TAVR). Gastrointestinal: Soft, Non-tender, Non-distended, Normal bowel sounds, No organomegaly, Hemorrhoids present. Musculoskeletal: Normal range of motion, Normal strength, No tenderness, No swelling, No deformity, Normal gait, Difficulty walking due to dizziness. Integumentary: Warm, Dry, [place], Intact. Neurologic: Alert, Oriented, Normal sensory, Normal motor function, No focal defects, Cranial Nerves II-XII are grossly intact, Normal deep tendon reflexes, History of stroke, Dizziness present. Psychiatric: Cooperative, Appropriate mood & affect, Normal judgment. Coding Level of Care Code Est Pt Level 4 (24649) Add On Problem Visit Only Diagnoses Dizziness R42 Nonrheumatic aortic valve stenosis I35.0 Cardiac valve disease etiology: nonrheumatic Other emphysema J43.8 COPD type: emphysema Emphysema type: other Other hyperlipidemia E78.49 Hyperlipidemia type: other hyperlipidemia GERD without esophagitis K21.9 Hypertension, essential I10 Constipation, unspecified constipation type K59.00 Constipation type: unspecified constipation type Assessment & Plan Assessment & Plan (1) Dizziness: Comment: - Dizziness appears multifactorial, potentially related to post-stroke changes, blood pressure instability, and possible Postural Orthostatic Tachycardia Syndrome (POTS). - Discontinue lisinopril due to exertional and postural BP drops. - Prescribe meclizine for symptomatic relief. - Recommend increased fluid intake and use of compression stockings. - Follow up in one month to assess response to treatment. Code(s): R42 - Dizziness and giddiness Category: Medical (2) Aortic stenosis: Comment: - The patient is status post TAVR over two years ago and reports feeling worse since the procedure. - There has been a lack of consistent cardiology follow-up. - The patient will be referred to cardiology, with options including Dr. Barber or Dr. Villafana, for further management. Code(s): I35.0 - Nonrheumatic aortic (valve) stenosis Category: Medical Qualifiers: Cardiac valve disease etiology: nonrheumatic Qualified Code(s): I35.0 - Nonrheumatic aortic (valve) stenosis (3) COPD (chronic obstructive pulmonary disease): Comment: (COPD in long-time smoker ) PULM . FUNCTION TEST IN 2020 C/W mild to moderate obstructive disorder , with good response to bronchodilator therapy. ( ACOS ) SPIROMETRY IN 2022 , SHOWED MAINLY RESTRICTIVE COMPONENT, MODERATELY SEVERE. SPIROMETRY TODAY IN THE OFFICE SHOWS THAT HIS RESTRICTIVE COMPONENT IS ACTUALLY LESS PROMINENT THAN BEFORE, BUT HE DOES HAVE MODERATE DEGREE OF OBSTRUCTIVE AIRWAY DISORDER, THIS IS BECAUSE HE IS NOT USING DULERA. - Continue albuterol as needed for emphysema. Code(s): J44.9 - Chronic obstructive pulmonary disease, unspecified Category: Medical Qualifiers: COPD type: emphysema Emphysema type: other Qualified Code(s): J43.8 - Other emphysema (4) Hyperlipidemia: Comment: - Continue rosuvastatin for management of high cholesterol. Code(s): E78.5 - Hyperlipidemia, unspecified Category: Medical Qualifiers: Hyperlipidemia type: other hyperlipidemia Qualified Code(s): E78.49 - Other hyperlipidemia (5) GERD without esophagitis: Comment: - Continue omeprazole as needed for GERD. Code(s): K21.9 - Gastro-esophageal reflux disease without esophagitis Category: Medical (6) Hypertension, essential: Comment: - The patient reports blood pressure fluctuations, with exertional increases followed by drops. - Today's reading was 130/64 mmHg. - Linsinopril 10 mg will be discontinued due to symptomatic hypotension. Code(s): I10 - Essential (primary) hypertension Category: Medical (7) Constipation: Comment: - The patient reports constipation, partly due to a hemorrhoid. - Advised to take his stool softener daily instead of as needed to ensure regular bowel movements. Code(s): K59.00 - Constipation, unspecified Category: Medical Qualifiers: Constipation type: unspecified constipation type Qualified Code(s): K59.00 - Constipation, unspecified Plan: Health Maintenance: - A follow-up visit is scheduled in one month for an annual physical. - Comprehensive lab work will be done the week prior to the next visit, to include CBC, electrolytes, glucose, and screenings for hepatitis, HIV, and syphilis, as well as a urinalysis. - Paperwork for a permanent handicap placard will be processed to address mobility limitations. Patient was informed and verbally consented to the use of an ambient scribe for clinic note documentation during this visit. Plan I discussed with the patient his primary complaint of dizziness, which appears to be multifactorial. I explained that the fluctuations in his blood pressure, particularly the drops after exertion, are a significant contributing factor. I recommended discontinuing lisinopril given his current blood pressure of 130/64 and his symptoms of hypotension. I prescribed meclizine, a safe and common medication, to help with the dizziness. We discussed the possibility of Postural Orthostatic Tachycardia Syndrome (POTS) and I recommended conservative measures such as increased fluid intake and compression stockings. I emphasized the importance of re-establishing care with a rock crushing machine operator, especially given his post-TAVR status and lack of follow-up, and provided a referral to a new rock crushing machine operator within our practice. I also advised him to take his stool softener daily to prevent constipation. We scheduled a follow-up in one month for an annual physical, with orders for lab work to be completed the week prior. I agreed to complete the paperwork for his permanent handicap placard. Orders: Orders Comprehensive Met. Panel 1 Month Z00.00 - Encounter for general adult medical examination without abnormal findings Hemoglobin A1c 1 Month Z00.00 - Encounter for general adult medical examination without abnormal findings Hepatitis A,B,C Profile 1 Month Z00.00 - Encounter for general adult medical examination without abnormal findings HIV Ab/Ag 1 Month Z00.00 - Encounter for general adult medical examination without abnormal findings Syphilis Screen 1 Month Z00.00 - Encounter for general adult medical examinat ion without abnormal findings UA CC w/rflx Micro + Cult 1 Month Z00.00 - Encounter for general adult medical examination without abnormal findings Complete Blood Count Auto Diff 1 Month Z00.00 - Encounter for general adult medical examination without abnormal findings Lipid Panel 1 Month Z00.00 - Encounter for general adult medical examination without abnormal findings Microalbumin, Random (w Creat) 1 Month Z00.00 - Encounter for general adult medical examination without abnormal findings TSH reflex Free T4 1 Month Z00.00 - Encounter for general adult medical examination without abnormal findings Vitamin D 25-OH Total 1 Month Z00.00 - Encounter for general adult medical examination without abnormal findings Referrals Cardiology Referral I25.10 - Atherosclerotic heart disease of [place] coronary artery without angina pectoris, I35.0 - Nonrheumatic aortic (valve) stenosis Medications: New meclizine 12.5 mg PO TID PRN 60 tabs 0RF dizziness Changed From omeprazole 20 mg PO DAILY PRN To omeprazole 20 mg PO DAILY 90 caps 1RF From rosuvastatin 10 mg PO 3XW I35.0 - Nonrheumatic aortic (valve) stenosis To rosuvastatin 10 mg PO DAILY 90 tabs 1RF I35.0 - Nonrheumatic aortic (valve) stenosis Patient Instructions: - Stop taking your lisinopril blood pressure pill. - Start taking meclizine for dizziness as prescribed. A prescription for a one- month supply has been sent. - Take your stool softener pill every day to keep your bowels moving regularly. - Continue taking your other medications, including rosuvastatin (for cholesterol), omeprazole (for reflux), and albuterol (for breathing). - Drink plenty of fluids and use compression stockings on your legs. - We will set you up with an appointment to see a learning specialist (rock crushing machine operator). - Go to the lab to get blood work done one week before your next appointment. - Come back to the office in one month for your yearly physical. - Please bring in the paperwork for your permanent handicap placard so it can be filled out and sent in.
[2025-11-02 09:01] VITALS: BP 130/64; PULSE 73; RESP 16; TEMP 35.9; O2SAT 94; BMI 23.9
--- OUTSIDE RECORDS SUMMARY | 2025-11-02 09:31 | XMS_ITS | Clinical Summary ---
Author Organization [facility] Facility Address [address] [place] [id number] Care Team Providers Care Green Chain Marker Name Role Phone Unavailable Primary Care Provider [...] PCV20, or PCV21) 11/06/2016 09/11/2016 Influenza Vaccine (#1) 2025 07/14/2020 Pneumococcal Vaccine: Peds ( 0 to 5 Years) and At-Risk Patients (6 to 49 Years) Discontinued 09/11/2016 [place] Medicare Medicaid [place]
--- OUTSIDE RECORDS SUMMARY | 2025-11-02 09:31 | XMS_ITS | Clinical Summary ---
Author Organization [employer] Address [address] [place] [address] Care Team Providers Care Electrical Tester Battery Name Role Phone Unavailable Primary Care Provider Unavailabl e Medications rosuvastatin (Crestor) 20 MG tablet TAKE 1 TABLET BY MOUTH EVERY DAY 90 tablet 06/14/2023 Active Social History Tobacco Use Types Packs/Day Years Used Date Smoking Tobacco: Never Assessed Sex and Gender Information Value Date Recorded Sex Assigned at Male 09/11/2022 10:21 AM EDT Legal Sex Male 10:21 AM EDT Gender Identity Male 09/11/2022 10:21 AM EDT Sexual Orientation Straight 09/11/2022 10 :21 AM EDT Last Filed Vital Signs Vital Sign Reading Time Taken Comments Blood Pressure 132/72 08/03/2021 12:09 AM EDT Pulse 74 08/02/2021 12:09 AM EDT Temperature - - Respiratory Rate - - Oxygen Saturation - - Inhaled Oxygen Concentration - - Weight 90.6 kg (199 lb 12.8 oz) 021 12:09 AM EDT Height 176.5 cm (5' 9.49 ) 08/02/2021 1 2:09 AM EDT Body Mass Index 29.09 08/02/2021 12:09 AM EDT Plan of Treatment Health Maintenance Due Date Last Done Comments Depression Screening 1945 Alcohol/Substance Use Screening 1958 Tobacco Screening 1958 Zoster Vaccines (1 of 2) 1996 Pneumococcal Vaccine: 50+ Years (3 of 3 - PCV20 or PCV21) 09/11/2021 09/11/2016, 02/24/2009 RSV Patients and Patients Aged 60 years or older (1 - 1-dose 75+ series) 2021 COVID-19 Vaccine ( season) 2025 02/18/2022, 02/05/2021, 01/07/2021 Influenza Vaccine (#1) 2025 , 07/14/2020, 09/06/2017, Additional history exists DTaP/Tdap/Td Vaccines (2 - Td or Tdap) 05/12/2026 05/12/2016 Lipid Panel 09/15/2027 09/15/2022, 07/14, 03/18/2021 HIB Vaccines Aged Out No longer eligi ble based on patient's age to complete this topic HPV Vaccines Aged Out No longer eligi ble based on patient's age to complete this topic Hepatitis A Vaccines Aged Out No long er eligible based on patient's age to complete this topic Hepatitis B Vaccines Aged Out No long er eligible based on patient's age to complete this topic IPV Vaccines Aged Out No longer eligi ble based on patient's age to complete this topic Meningococcal B Vaccine Aged Out No l onger eligible based on patient's age to complete this topic Meningococcal Vaccine Aged Out No [place] eligible based on patient's age to complete this topic RSV under 20 months Aged Out No longe r eligible based on patient's age to complete this topic Rotavirus Vaccines Aged Out No longer eligible based on patient's age to complete this topic Procedures Procedure Name Priority Date/Time Associated Diagnosis Comments SONIA HISTORICAL LIPID PANEL Routine 09/15/2022 8:40 AM EDT from Last 3 Months or Most Recently Relevant to Health Maintenance Results * (ABNORMAL) LIPID PANEL (09/15/2022 8:40 AM EDT) Cholesterol 159 mg/dL [facility] Comment: Desirable Cholesterol: less than 200 mg/dL Borderline High Cholesterol: 200-239 mg/dL High Cholesterol: greater than 239 mg/dL HDL Cholesterol 44 mg/dL [facility] Comment: Desirable HDL: greater than 40 mg/dL Note: This HDL assay may give artificially low results in patients with liver disease. LDL Cholesterol Calculated 93 mg/dl [facility] Comment: Desirable LDL: less than 100 mg/dL Near Optimal/Above Optimal LDL: 110-129 mg/dL Borderline High LDL: 130-159 mg/dL High LDL: 160-189 mg/dL Very High LDL: greater than or equal to 190 mg/dL Triglycerides 112 mg/dL [facility] Comment: Desirable Triglyceride: less than 150 mg/dL Borderline High Triglyceride 150-199 mg/dL High Triglyceride: 200-499 mg/dL Very High Triglyceride: greater than or equal to 5OO mg/dL Alanine Aminotransferase 15 0 - 40 U/L [facility] Albumin Level 4.0 3.5 - 5.0 g/dL [facility] Alkaline Phosphatase 96 39 - 117 U/L [facility] Anion Gap 18 12 - 20 [facility] Aspartate Amino Transferase 18 5 - 37 U/L [facility] Bilirubin Total 0.5 0.0 - 1.0 mg/dL [facility] Blood Urea Nitrogen 22(H) 9 - 16 mg/dL [facility] Calcium 9.5 8.4 - 10.2 mg/dL [facility] Carbon Dioxide 26 22 - 29 mmol/L [facility] Chloride 102 96 - 108 mmol/L [facility] Creatinine, Serum 1.22 0.5 - 1.4 mg/dL [facility] Estimated Glomerular Filt Rate 58 [facility] Comment: NOTE: For -[place] individuals, multiply the result by 1.210. Chronic Kidney Disease: Estimated GFR < 60 mL/min/1.73m2 Severe Kidney Disease: Estimated GFR < 15 mL/min/1.73m2 Glucose Fasting 142(H) 60 - 99 mg/dL [facility] Comment: A fasting glucose of 126 mg/dl or greater on more than one occasion is considered diagnostic of diabetes. Potassium 4.6 3.3 - 5.1 mmol/L [facility] Sodium 141 135 - 145 mmol/L [facility] Total Protein 8.0 6.5 - 8.0 g/dL [facility] 09/15/2022 8:40 AM EDT us Historical Provider HISTORICAL/NON ORDERABLE LABS Final Result [facility] from Last 3 Months or Most Recently Relevant to Health Maintenance
--- OUTSIDE RECORDS SUMMARY | 2025-11-02 09:31 | XMS_ITS | Encounter Summary ---
Author Organization [employer] Address [address] [facility] [address] [place] [address] Care Team Providers Care Electro Winning Operator Name Role Phone Name, Orlando MARIE Primary Care Provider [phone] Encounter Details Date Type Department Care Team (Late st Contact Info) Description 06/14/2023 Orders Only [facility] [address] [place] [address] Kayleen Judd LPN Social History Tobacco Use Types Packs/Day Years Used Date Smoking Tobacco: Never Assessed Sex and Gender Information Value Date Recorded Sex Assigned at Male 09/11/2022 10:21 AM EDT Legal Sex Male 10:21 AM EDT Gender Identity Male 09/11/2022 10:21 AM EDT Sexual Orientation Straight 09/11/2022 10 :21 AM EDT documented as of this encounter Plan of Treatment Not on file documented as of this encounter Visit Diagnoses Not on filedocumented in this encounter Care Teams Electro Winning Operator Relationship Specialty Start Date End Date Name, MD Orlando [address] [place] [address] PCP - General Family Medicine 08/03/21 11/15/23 documented as of this encounter
== END 2025-11-02 09:28 | disposition home or self-care (01) ==
LOC: HO.HMCHD 08:54
PROVIDERS: PCP Student in an Organized Health Care Education/Training Program; Visit Provider Student in an Organized Health Care Education/Training Program
DX: R42 Dizziness and giddiness (principal); I35.0 Nonrheumatic aortic (valve) stenosis; J43.8 Other emphysema; E78.49 Other hyperlipidemia; K21.9 Gastro-esophageal reflux disease without esophagitis; I10 Essential (primary) hypertension; K59.00 Constipation, unspecified

== ENCOUNTER → 2025-11-02 08:53 | Outpatient (BNVA) | payer MEDICARE, MEDICAID, SELFPAY | PROVIDERS: PCP Student in an Organized Health Care Education/Training Program; Visit Provider Student in an Organized Health Care Education/Training Program | DX: R42 Dizziness and giddiness (principal); J43.8 Other emphysema; E78.49 Other hyperlipidemia; K21.9 Gastro-esophageal reflux disease without esophagitis; I10 Essential (primary) hypertension; K59.00 Constipation, unspecified; I35.0 Nonrheumatic aortic (valve) stenosis | CPT/HCPCS: 99212 ==